=== PATIENT | male | born 1965 | race Caucasian/White ===

== ENCOUNTER → 2020-12-29 08:56 | Outpatient (BNVA) | payer BC, SELFPAY | PROVIDERS: Family Provider Family Medicine; Visit Provider Podiatrist Foot & Ankle Surgery | DX: M79.673 Pain in unspecified foot (principal) | CPT/HCPCS: 77077 ==

== ENCOUNTER 2020-12-29 10:49 | Outpatient (CLI) | payer BC, SELFPAY | END 2020-12-29 10:50 | disposition home or self-care (01) | LOC: SPT 10:50 | PROVIDERS: Family Provider Family Medicine; Visit Provider Podiatrist Foot & Ankle Surgery | DX: Z46.89 Encounter for fitting and adjustment of other specified devices (principal); L97.522 Non-pressure chronic ulcer of other part of left foot with fat layer exposed; E11.42 Type 2 diabetes mellitus with diabetic polyneuropathy | CPT/HCPCS: 97760; L4361 ==

== ENCOUNTER → 2021-07-04 10:15 | Outpatient (BNVA) | payer BC, SELFPAY | PROVIDERS: Family Provider Family Medicine; PCP Nurse Practitioner; Visit Provider Nurse Practitioner | DX: E11.65 Type 2 diabetes mellitus with hyperglycemia (principal); Z12.5 Encounter for screening for malignant neoplasm of prostate | CPT/HCPCS: 80053; 80061; 81000; 83036; 84443; 85025; G0103 ==

== ENCOUNTER → 2021-09-18 09:05 | Outpatient (BNVA) | payer BC, SELFPAY | PROVIDERS: Family Provider Family Medicine; PCP Nurse Practitioner; Visit Provider Nurse Practitioner | DX: E11.65 Type 2 diabetes mellitus with hyperglycemia (principal); I10 Essential (primary) hypertension; G47.00 Insomnia, unspecified; M79.2 Neuralgia and neuritis, unspecified | CPT/HCPCS: 80053; 80061; 81003; 83036; 85025 ==

== ENCOUNTER → 2022-01-17 09:28 | Outpatient (BNVA) | payer BC, SELFPAY | PROVIDERS: Family Provider Family Medicine; PCP Nurse Practitioner; Visit Provider Nurse Practitioner | DX: E11.65 Type 2 diabetes mellitus with hyperglycemia (principal); Z79.4 Long term (current) use of insulin; E78.2 Mixed hyperlipidemia; I10 Essential (primary) hypertension; M79.2 Neuralgia and neuritis, unspecified; G47.00 Insomnia, unspecified | CPT/HCPCS: 80053; 80061; 81000; 82043; 83036 ==

== ENCOUNTER → 2022-03-20 15:56 | Outpatient (BNVA) | payer BC, SELFPAY | PROVIDERS: Family Provider Family Medicine; PCP Nurse Practitioner; Visit Provider Nurse Practitioner Family | DX: E11.621 Type 2 diabetes mellitus with foot ulcer (principal); L97.522 Non-pressure chronic ulcer of other part of left foot with fat layer exposed; I96 Gangrene, not elsewhere classified; L97.512 Non-pressure chronic ulcer of other part of right foot with fat layer exposed | CPT/HCPCS: 87070; 87077; 87176; 87186; 87205 ==

== ENCOUNTER 2022-04-24 12:47 | Outpatient (CLI) | payer BC, SELFPAY ==
[2022-04-24 13:11] LABS: Basophils # 0.1 10^3/uL (0.0-0.1); Basophils % 1.7 %; Eosinophils # 0.1 10^3/uL (0.0-0.8); Eosinophils % 2.1 %; Hematocrit 42.6 % (42.0-52.0); Hemoglobin 14.1 g/dL (11.7-16.6); Lymphocytes # 1.7 10^3/uL (0.8-4.8); Lymphocytes % 33.1 %; Mean Corpuscular HGB Conc 33.1 g/dL (30.0-36.0); Mean Corpuscular Hemoglobin 28.7 pg (28.0-34.0); Mean Corpuscular Volume 86.8 fl (80-94); Monocytes # 0.4 10^3/uL (0.2-0.9); Monocytes % 6.9 %; Nucleated Red Blood Cells % 0 %; Platelet Count 322 10^3/cmm (130-400); Red Blood Count 4.91 10^6/uL (4.1-5.3); Red Cell Distribution Width 13.4 % (12.1-15.1); White Blood Count 5.2 10^3/uL (4.0-10.0)
[2022-04-24 13:32] LABS: Estmated Average Glucose 180; Hemoglobin A1C 7.9 % (4.0-6.0)
[2022-04-24 13:42] LABS: Alanine Aminotransferase 16 U/L (0-41); Albumin Level 4.4 g/dL (3.5-5.2); Alkaline Phosphatase 76 IU/L (40-130); Anion Gap 15.9 (5-19); Aspartate Amino Transferase 18 U/L (0-40); Blood Urea Nitrogen 21 mg/dL (6-20); Calcium 9.5 mg/dL (8.5-10.5); Carbon Dioxide 26 mmol/L (22-29); Chloride 98 mmol/L (98-107); Chol HDL Ratio 4.44 mg/dL (1.0-5.00); Cholesterol 151 mg/dL (0-200); Globulin 3.5 g/dL (1.3-4.6); Glomerular Filtration Rate 116.2 mL/min (90-130); Glucose 173 mg/dL (65-115); HDL Cholesterol 34 mg/dL (60-100); LDL Cholesterol Calculated 92 mg/dL (50-129); Osmolality Calculated 287 mOsm/kg (285-295); Potassium 4.9 mmol/L (3.5-5.1); Sodium 135 mmol/L (136-145); Total Bilirubin 0.2 mg/dL (0.15-1.2); Total Protein 7.9 g/dL (6.6-8.7); Triglycerides 123 mg/dL (0-150); VLDL Cholestrol Calculation 25 mg/dL (0-30)
== END 2022-04-24 12:48 | disposition home or self-care (01) ==
LOC: LAB 12:49
PROVIDERS: PCP Nurse Practitioner; Visit Provider Nurse Practitioner
DX: E11.65 Type 2 diabetes mellitus with hyperglycemia (principal); Z79.4 Long term (current) use of insulin
CPT/HCPCS: 36415; 80053; 80061; 81000; 83036; 85025

== ENCOUNTER 2022-04-27 10:27 | Outpatient (CLI) | payer BC, SELFPAY ==
--- NOTE | 2022-04-27 10:15 | MR_ITS ---
WS: [id number] MRI LEFT FOOT with and without CONTRAST. COMPARISON: Radiograph 12/29/2020 Multiplanar, multisequence imaging is performed with and without contrast. Sagittal and axial T1 fat sat sequences post-MultiHance 20 cc IV. Peripherally enhancing soft tissue tract begins over the lateral foot at the level of the mid fifth m etatarsal. This tract extends over a length of 1.6 cm x 1.8 x 0.6 cm. Tract extends superficially an d extends to abut the mid to distal fifth metatarsal. There is enhancement consistent with abscess al andreia the tract along with extensive soft tissue edema and enhancement from cellulitis. No additional a bscess collections. Extensive edema and cellulitis surrounding the fifth metatarsal and extend adjace nt to the fourth metatarsal. There is an additional soft tissue track with enhancement along the plantar surface of the foot at th e level of the proximal fifth metatarsal. This corresponds to the marker placed near the nonhealing u lcer. This tract is contiguous with the proximal fifth metatarsal at the site of the fracture. This f racture line does not enhance significantly. Decreased T1 signal throughout the large portion of the fifth metatarsal with enhancement. Consistent with osteomyelitis. There is an old healed fracture of the proximal fifth metatarsal. Degenerative joint space narrowing with osteophytes and subchondral cystic changes involving the prox imal metatarsals and their corresponding tarsal bones. There is deformity in the midfoot. No addition al abscess or osteomyelitis. MR/MR foot LT wo/w con [id number] IMPRESSION: 1. Osteomyelitis involving a large portion of the fifth metatarsal with mild s paring of the fifth metatarsal head. 2. Soft tissue tract with enhancement consistent with an abscess extending federico ng the lateral mid to distal fifth metatarsal. Abscess measures 1.8 x 0.6 cm an d extends over length of 1.6 cm to abut the fifth metatarsal. 3. Additional soft tissue tract with enhancement but no abscess along the plan tar surface of the foot at the proximal fifth metatarsal. This tract extends to the fifth metatarsal where there is a prior fracture. There may be granulation tissue at the fracture site with nonhealing. There is not a significant amount of enhancement at the fracture site. There is osteomyelitis on both sides of t his granulation tissue. 4. Diffuse cellulitis of the lateral foot. 5. Advanced osteoarthritic degenerative changes in the midfoot.
[2022-04-27] MEDS: gadobenate dimeglumine 20 mL vial IV (12:00)
== END 2022-04-27 10:28 | disposition home or self-care (01) ==
PROVIDERS: PCP Nurse Practitioner; Visit Provider Nurse Practitioner Family
DX: E11.621 Type 2 diabetes mellitus with foot ulcer (principal); L97.509 Non-pressure chronic ulcer of other part of unspecified foot with unspecified severity; M86.8X7 Other osteomyelitis, ankle and foot; L03.116 Cellulitis of left lower limb
CPT/HCPCS: 73720

== ENCOUNTER 2022-05-18 13:36 | Outpatient (CLI) | payer BC, SELFPAY ==
[2022-05-18 14:07] LABS: Basophils # 0.1 10^3/uL (0.0-0.1); Basophils % 1.1 %; Eosinophils # 0.1 10^3/uL (0.0-0.8); Hematocrit 41.7 % (42.0-52.0); Hemoglobin 13.5 g/dL (11.7-16.6); Lymphocytes # 1.3 10^3/uL (0.8-4.8); Lymphocytes % 24.5 %; Mean Corpuscular HGB Conc 32.4 g/dL (30.0-36.0); Mean Corpuscular Hemoglobin 29.3 pg (28.0-34.0); Mean Corpuscular Volume 90.5 fl (80-94); Mean Platelet Volume 10.5 fL (7.4-10.4); Monocytes # 0.3 10^3/uL (0.2-0.9); Neutrophils # 3.63 10^3/uL (1.8-7.7); Neutrophils % 66.2 %; Nucleated Red Blood Cells % 0 %; Platelet Count 246 10^3/cmm (130-400); Red Blood Count 4.61 10^6/uL (4.1-5.3); Red Cell Distribution Width 14.8 % (12.1-15.1); White Blood Count 5.5 10^3/uL (4.0-10.0)
[2022-05-18 14:30] LABS: Alanine Aminotransferase 19 U/L (0-41); Albumin Level 4.7 g/dL (3.5-5.2); Alkaline Phosphatase 68 IU/L (40-130); Aspartate Amino Transferase 18 U/L (0-40); Blood Urea Nitrogen 24 mg/dL (6-20); Calcium 9.5 mg/dL (8.5-10.5); Carbon Dioxide 25 mmol/L (22-29); Chloride 98 mmol/L (98-107); Globulin 2.8 g/dL (1.3-4.6); Glomerular Filtration Rate 99.6 mL/min (90-130); Glucose 197 mg/dL (65-115); Osmolality Calculated 294 mOsm/kg (285-295); Sodium 137 mmol/L (136-145); Total Bilirubin 0.2 mg/dL (0.15-1.2); Total Protein 7.5 g/dL (6.6-8.7)
[2022-05-18 14:32] LABS: Anion Gap 18.7 (5-19); Potassium 4.7 mmol/L (3.5-5.1)
== END 2022-05-18 13:37 | disposition home or self-care (01) ==
LOC: LAB 13:39
PROVIDERS: PCP Nurse Practitioner; Visit Provider Nurse Practitioner Family
DX: M86.171 Other acute osteomyelitis, right ankle and foot (principal)
CPT/HCPCS: 80053; 85025

== ENCOUNTER 2022-09-06 01:00 | Outpatient (RCR) | payer BC, SELFPAY | END 2022-09-06 23:00 | disposition home or self-care (01) | LOC: CR 01:00 | PROVIDERS: PCP Nurse Practitioner; Referring Provider Thoracic Surgery (Cardiothoracic Vascular Surgery); Visit Provider Thoracic Surgery (Cardiothoracic Vascular Surgery) | DX: Z95.1 Presence of aortocoronary bypass graft (principal) | CPT/HCPCS: 87070; 87176; 87205 ==

== ENCOUNTER 2022-11-02 16:20 | Outpatient (CLI) | payer BC, SELFPAY ==
[2022-11-02 17:16] LABS: Alanine Aminotransferase 27 U/L (0-41); Albumin Level 3.8 g/dL (3.5-5.2); Alkaline Phosphatase 99 U/L (40-130); Anion Gap 15.7 (5-19); Aspartate Amino Transferase 21 U/L (0-40); Blood Urea Nitrogen 20 mg/dL (6-20); Calcium 9.2 mg/dL (8.5-10.5); Carbon Dioxide 25 mmol/L (22-29); Chloride 99 mmol/L (98-107); Chol HDL Ratio 3.21 mg/dL (1.0-5.00); Cholesterol 106 mg/dL (0-200); Globulin 3.7 g/dL (1.3-4.6); Glomerular Filtration Rate 99.6 mL/min (90-130); Glucose 217 mg/dL (65-115); HDL Cholesterol 33 mg/dL (60-100); LDL Cholesterol Calculated 48 mg/dL (50-129); LDL HDL Ratio 1.45 RATIO (0.00-3.22); Osmolality Calculated 289 mOsm/kg (285-295); Potassium 4.7 mmol/L (3.5-5.1); Sodium 135 mmol/L (136-145); Total Bilirubin 0.2 mg/dL (0.15-1.2); Total Protein 7.5 g/dL (6.6-8.7); Triglycerides 126 mg/dL (0-150)
[2022-11-02 21:03] LABS: Estmated Average Glucose 197; Hemoglobin A1C 8.5 % (4.0-6.0)
== END 2022-11-02 16:21 | disposition home or self-care (01) ==
LOC: LAB 16:25
PROVIDERS: PCP Nurse Practitioner; Referring Provider Thoracic Surgery (Cardiothoracic Vascular Surgery); Visit Provider Internal Medicine
DX: E11.65 Type 2 diabetes mellitus with hyperglycemia (principal); Z79.4 Long term (current) use of insulin; E78.2 Mixed hyperlipidemia; R20.0 Anesthesia of skin; R20.2 Paresthesia of skin
CPT/HCPCS: 36415; 80053; 80061; 83036

== ENCOUNTER 2022-11-06 10:09 | Outpatient (CLI) | payer BC, SELFPAY ==
[2022-11-06] MEDS: gadobenate dimeglumine 20 mL vial IV (11:35)
--- NOTE | 2022-11-06 11:45 | MR_ITS ---
WS: [id number] EXAMINATION: MR foot LT wo/w con [id number] ORDER DATE: 11/06/2022 10:38 AM COMPARISON: MRI April 27, 2022 HISTORY: non-healing wound; osteomyelitis; bone exposure TECHNIQUE: Sagittal T1, sagittal STIR, coronal PD, coronal T2, axial T1, axial T2, and axial PD imagi ng with fat saturation technique. Post gadolinium imaging includes axial T1, coronal T1, and sagittal T1 with fat saturation technique. FINDINGS: Diffuse soft tissue edema with enhancement involving the lateral foot soft tissues. This ex tends into the dorsal and deep foot soft tissues involving the lateral midfoot. Findings compatible w ith cellulitis. Ulceration along the inferior lateral midfoot at the level of the 5th metatarsal. No drainable abscess or fluid collection in this area. Replacement of the normal fatty T1 bone marrow si gnal involving the 5th metatarsal. This involves the base of the 5th metatarsal extending into the me tatarsal shaft. Small amount of residual normal bone marrow signal in the 5th metatarsal head. Findin gs compatible with osteomyelitis. Associated T2 signal abnormality and enhancement. Chronic appearing deformity and bowing of the 5th metatarsal. Chronic appearing fracture involving pr oximal 5th metatarsal shaft. Chronic degenerative changes involving the tarsal bones. Advanced degenerative changes at the cuboid articulation with a small amount of edema in the cuboid likely reactive. Small amount of fluid at the 5th TMT joint. Pes planus. Tiny plantar calcaneal spur. MR/MR foot LT wo/w con [id number] IMPRESSION: Images somewhat limited due to motion artifact. 1. Evidence of osteomyelitis involving the majority of the 5th metatarsal exte nding from the base to the distal shaft. This appears progressed compared to 2021 with sparing of the metatarsal head. 2. Diffuse associated cellulitis and soft tissue edema involving the lateral a nd dorsal aspect of the foot. 3. Small ulceration overlying the 5th metatarsal laterally and inferiorly. No drainable abscess or fluid collection. 4. Chronic appearing bowing deformity involving the 5th metatarsal with ununit ed fracture at the proximal shaft. 5. Advanced degenerative changes/ankylosis at the cuboid articulation.
== END 2022-11-06 10:10 | disposition home or self-care (01) ==
LOC: RAD 10:11
PROVIDERS: PCP Nurse Practitioner; Visit Provider Thoracic Surgery (Cardiothoracic Vascular Surgery)
DX: E11.621 Type 2 diabetes mellitus with foot ulcer (principal); L97.509 Non-pressure chronic ulcer of other part of unspecified foot with unspecified severity; M86.9 Osteomyelitis, unspecified
CPT/HCPCS: 73720; 87070; 87077; 87176; 87186; 87205; A9577

== ENCOUNTER 2022-11-16 11:02 | Outpatient (CLI) | payer BC, SELFPAY ==
--- NOTE | 2022-11-16 11:50 | XRR_ITS ---
PROCEDURE INFORMATION: Exam: XR Chest Exam date and time: 11/16/2022 12:06 PM Age: 56 years old Clinical indication: Screening exam; Other screening; Prior surgery; Surgery type: Open heart; Additional info: Rule out bullous disease; Hyperbaric clearance TECHNIQUE: Imaging protocol: Radiologic exam of the chest. Views: 2 views. COMPARISON: CR XR KUB [id number] 04/04/2018 3:59 AM FINDINGS: Lungs: Unremarkable. No consolidation. Pleural spaces: Unremarkable. No pleural effusion. No pneumothorax. Heart/Mediastinum: Unremarkable. No cardiomegaly. Bones/joints: Patient has undergone prior median sternotomy otherwise osseous structures are unremarkable for age. XR/XR chest 2V* [id number] IMPRESSION: Negative chest. No active disease.
[2022-11-16 12:17] LABS: Basophils # 0.1 10^3/uL (0.0-0.1); Basophils % 1.5 %; Eosinophils # 0.2 10^3/uL (0.0-0.8); Eosinophils % 2.6 %; Hematocrit 37.6 % (42.0-52.0); Hemoglobin 11.8 g/dL (11.7-16.6); Lymphocytes # 1.6 10^3/uL (0.8-4.8); Lymphocytes % 21.6 %; Mean Corpuscular HGB Conc 31.4 g/dL (30.0-36.0); Mean Corpuscular Hemoglobin 27.3 pg (28.0-34.0); Mean Corpuscular Volume 86.8 fl (80-94); Mean Platelet Volume 10.4 fL (7.4-10.4); Monocytes # 0.4 10^3/uL (0.2-0.9); Monocytes % 5.7 %; Neutrophils % 68.3 %; Nucleated Red Blood Cells % 0 %; Platelet Count 311 10^3/cmm (130-400); Red Blood Count 4.33 10^6/uL (4.1-5.3); Red Cell Distribution Width 13.4 % (12.1-15.1); White Blood Count 7.3 10^3/uL (4.0-10.0)
[2022-11-16 12:22] LABS: Erythrocyte Sedimentation Rate 12 mm/hr (0-10)
[2022-11-16 12:39] LABS: C Reactive Protein 4.9 mg/L (0.0-4.9)
--- NOTE | 2022-11-16 16:10 | ECG_ITS ---
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 Measurements Intervals [place] Rate: 70 P: 67 NV: 194 QRS: -18 QRSD: 100 T: 114 QT: 395 QTc: 429 Interpretive Statements SINUS RHYTHM POSSIBLE ANTERIOR MYOCARDIAL INFARCTION , OF INDETERMINATE AGE [30 ms Q WAVE IN V3/V4, OR R < 0.2 mV IN V4] MODERATE T-WAVE ABNORMALITY, CONSIDER LATERAL ISCHEMIA [-0.1+ mV T-WAVE IN I/aVL/V5/V6] Compared to ECG 01/12/2015 16:55:53 T-wave abnormality now present Possible ischemia now present Sinus tachycardia no longer present Myocardial infarct finding still present Electronically Signed On 11-16-2022 16:23:20 PRESENTATION TEAM MEMBER by Willard Morelos M.D. [id number] f
== END 2022-11-16 11:03 | disposition home or self-care (01) ==
PROVIDERS: PCP Nurse Practitioner; Visit Provider Thoracic Surgery (Cardiothoracic Vascular Surgery)
DX: Z13.83 Encounter for screening for respiratory disorder NEC (principal); M86.672 Other chronic osteomyelitis, left ankle and foot; I21.9 Acute myocardial infarction, unspecified
CPT/HCPCS: 71046; 85025; 85651; 86140; 93005

== ENCOUNTER 2023-03-20 10:14 | Outpatient (CLI) | payer BC, SELFPAY ==
[2023-03-20 11:13] LABS: Alanine Aminotransferase 32 U/L (0-41); Albumin Level 3.9 g/dL (3.5-5.2); Alkaline Phosphatase 117 U/L (40-130); Anion Gap 16.8 (5-19); Aspartate Amino Transferase 21 U/L (0-40); Blood Urea Nitrogen 25 mg/dL (6-20); Calcium 9.1 mg/dL (8.5-10.5); Carbon Dioxide 23 mmol/L (22-29); Chloride 99 mmol/L (98-107); Chol HDL Ratio 2.81 mg/dL (1.0-5.00); Cholesterol 87 mg/dL (0-200); Globulin 3.5 g/dL (1.3-4.6); Glomerular Filtration Rate 138.4 mL/min (90-130); Glucose 198 mg/dL (65-115); HDL Cholesterol 31 mg/dL (60-100); LDL Cholesterol Calculated 41 mg/dL (50-129); LDL HDL Ratio 1.32 RATIO (0.00-3.22); Osmolality Calculated 288 mOsm/kg (285-295); Potassium 4.8 mmol/L (3.5-5.1); Sodium 134 mmol/L (136-145); Total Bilirubin 0.3 mg/dL (0.15-1.2); Total Protein 7.4 g/dL (6.6-8.7); Triglycerides 74 mg/dL (0-150)
[2023-03-20 12:26] LABS: Estmated Average Glucose 203; Hemoglobin A1C 8.7 % (4.0-6.0)
== END 2023-03-20 10:15 | disposition home or self-care (01) ==
PROVIDERS: PCP Nurse Practitioner; Visit Provider Internal Medicine
DX: E11.65 Type 2 diabetes mellitus with hyperglycemia (principal); Z79.4 Long term (current) use of insulin
CPT/HCPCS: 36415; 80053; 80061; 83036

== ENCOUNTER 2023-08-13 15:04 | Emergency (ER) | payer BC, SELFPAY ==
[2023-08-13 15:08] VITALS: BP 145/79; PULSE 102; RESP 16; TEMP 37.2; O2SAT 97; BMI 27.0
--- NOTE | 2023-08-13 15:21 | XR_ITS ---
WS: [id number] Right foot, 3 views 08/13/2023 Clinical Data: diabetic foot ulcers Comparison: Bilateral feet, 12/29/2020 Findings: No fractures or dislocations are seen. There is soft tissue swelling with a superficial ulcer at the lateral aspect of the distal right fifth metatarsal. No bone destruction or erosion is seen. There ar e flexion deformities of the right first through fifth toes. Impression: Soft tissue ulceration adjacent to the lateral distal right fifth metatarsal.
--- NOTE | 2023-08-13 15:21 | XR_ITS ---
WS: [id number] Left foot, 3 views, 08/13/2023 Clinical Data: diabetic foot ulcers Comparison: Bilateral feet, 12/29/2020 Findings: The old fracture of the proximal left fifth metatarsal remains the same. There is osteoarthritis of the bases of the left first, second and third metatarsals as they articula te with the cuneiforms. There is osteoarthritis of the IP joints of the toes. The soft tissues are no rmal. Impression: 1. 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 2. Old fracture left fifth metatarsal.
--- NOTE | 2023-08-13 15:56 | ED_ITS ---
HPI - Wound/Laceration General: Chief Complaint: Wound/Laceration Stated Complaint: spot on rt leg Time Seen by Provider: 08/13/23 15:11 Source: patient Mode of arrival: ambulatory History of Present Illness: 57-year-old male presents emergency room he has a open wound on his right foot that is not been draining he has proximal red streaking he is concerned about cellulitis no fever sweats or chills. Does have a history of diabetes mellitus Onset (ago): day(s) Extremity Location: Right: lower leg Associated symptoms: Denies chills, fever(s), foreign body sensation, inability to move, nausea, numbness, pain, syncope or vomiting Review of Systems Const: Denies: fever(s) or chills Card: Denies: chest pain, palpitations or syncope Resp: Denies: dyspnea GI: Denies: nausea or vomiting : Denies: dysuria, urinary frequency or urinary urgency Musc: Denies: neck pain or back pain Skin/Breast: Reports: rash, new lesions, changing lesions and non-healing lesions PFSH ED PFSH: Medical History Diabetes mellitus with hyperglycemia, with long-term current use of insulin Hyperlipidemia, mixed Hypertension Insomnia Neuropathic pain Osteomyelitis of foot, right, acute Surgical History History of heart bypass surgery July 2022 History of knee surgery both Family History Other Cancer Dementia Diabetes Lung disease Neuropathic pain Denies family history of Chronic kidney disease (CKD) Hypertension Stroke Social History Smoking and tobacco/nicotine status: never used tobacco/nicotine Second hand smoke exposure: No Alcohol intake: current Alcohol intake frequency: holidays/special occasions only Substance/Drug Use: never Adopted: No Caregiver/support person: No Lives independently: Yes Household members: spouse Housing: House Number of children: 2 service: No Current occupational status: employed Current occupation: [employer] Current occupational exposures/hazards: No Pets and animals: Yes Do you think of yourself as: Straight/Heterosexual Current gender identity: Male Physical Exam Const: COMMON NORMALS: no acute distress GENERAL APPEARANCE: cooperative and comfortable ORIENTATION/CONSCIOUSNESS: Yes awake, Yes oriented to person, Yes oriented to place and Yes oriented to time HENMT: COMMON NORMALS: normocephalic, atraumatic and hearing grossly normal bilaterally HEAD & SCALP: normocephalic and atraumatic Resp: COMMON NORMALS: normal respiratory effort, No retractions, No use of accessory muscles and clear to auscultation bilaterally AUSCULTATION: clear to auscultation bilaterally Cardio: COMMON NORMALS: regular rate, regular rhythm and No murmurs present (Cardio) RATE: regular rate RHYTHM: regular rhythm GI: COMMON NORMALS: Soft to palpation and No hepatosplenomegaly present AUSCULTATION: Yes normoactive bowel sounds PALPATION: Yes Soft to palpation, No Tenderness to palpation present (GI), No Guarding due to palpation present (GI) and Yes No hepatosplenomegaly present Extremity: COMMON NORMALS: normal to inspection, capillary refill normal, no clubbing, cyanosis or edema, no calf tenderness and no pedal edema OTHER: Full-thickness ulcer on the right fifth toe no drainage Neuro: SENSORIUM/ORIENTATION: Yes oriented to person, Yes oriented to place and Yes oriented to time Skin: COMMON NORMALS: no rashes or lesions noted GENERAL SKIN EXAM: no rashes or lesions noted Course Vital Signs: Vital signs: Vital Signs Temperature 99.0 F 08/13/23 15:08 Pulse Rate 102 H 08/13/23 15:08 Respiratory Rate 16 08/13/23 15:08 Blood Pressure 145/79 08/13/23 15:08 Pulse Oximetry 97 08/13/23 15:08 MDM - Wound/Laceration Medical Decision Making Diabetic foot ulcer started on Bactrim and referred to wound care clinic Medical Records I reviewed the patient's medical records. Lab Data I reviewed the patient's lab results. 08/13/23 15:47 08/13/23 15:47 Laboratory Results WBC 11.46 10^3/uL (3.29-11.43) H 08/13/23 15:47 RBC 4.70 10^6/uL (3.85-5.65) 08/13/23 15:47 Hgb 14.00 g/dL (11.27-16.99) 08/13/23 15:47 Hct 42.2 % (37-53) 08/13/23 15:47 MCV 89.8 fl (82-101) 08/13/23 15:47 MCH 29.8 pg (27-33) 08/13/23 15:47 MCHC 33.2 g/dL (30-55) 08/13/23 15:47 RDW 12.9 % (12.1-15.1) 08/13/23 15:47 Plt Count 219 10^3/cmm (157-399) 08/13/23 15:47 MPV 10.6 fL (7.4-10.4) H 08/13/23 15:47 Neut % (Auto) 84.5 % 08/13/23 15:47 Lymph % (Auto) 8.6 % 08/13/23 15:47 [place] % (Auto) 6.0 % 08/13/23 15:47 Eos % (Auto) 0.1 % 08/13/23 15:47 Baso % (Auto) 0.5 % 08/13/23 15:47 Neut # (Auto) 9.68 10^3/uL (1.8-7.7) H 08/13/23 15:47 Lymph # (Auto) 1.0 10^3/uL (0.8-4.8) 08/13/23 15:47 [place] # (Auto) 0.7 10^3/uL (0.2-0.9) 08/13/23 15:47 Eos # (Auto) 0.0 10^3/uL (0.0-0.8) 08/13/23 15:47 Baso # (Auto) 0.1 10^3/uL (0.0-0.1) 08/13/23 15:47 Nucleated RBC % (auto) 0 % 08/13/23 15:47 Nucleated RBCs # 0.0 /100WBC 08/13/23 15:47 Sodium 134 mmol/L (136-145) L 08/13/23 15:47 Potassium 4.7 mmol/L (3.5-5.1) 08/13/23 15:47 Chloride 97 mmol/L (98-107) L 08/13/23 15:47 Carbon Dioxide 22 mmol/L (22-29) 08/13/23 15:47 Anion Gap 19.7 (5-19) H 08/13/23 15:47 BUN 18 mg/dL (6-20) 08/13/23 15:47 Creatinine 0.8 mg/dL (0.7-1.2) 08/13/23 15:47 GFR Calculation 99.3 mL/min (90-130) 08/13/23 15:47 Glucose 217 mg/dL (65-115) H 08/13/23 15:47 Calculated Osmolality 286 mOsm/kg (285-295) 08/13/23 15:47 Calcium 9.0 mg/dL (8.5-10.5) 08/13/23 15:47 Total Bilirubin 1.2 mg/dL (0.15-1.2) 08/13/23 15:47 AST 13 U/L (0-40) 08/13/23 15:47 ALT 19 U/L (0-41) 08/13/23 15:47 Alkaline Phosphatase 76 U/L (40-130) 08/13/23 15:47 Total Protein 7.6 g/dL (6.6-8.7) 08/13/23 15:47 Albumin 3.8 g/dL (3.5-5.2) 08/13/23 15:47 Globulin 3.8 g/dL (1.3-4.6) 08/13/23 15:47 All radiology interpretation(s) finalized by discharge Discharge Plan Discharge Patient Disposition: Home Clinical Impression: Diabetic foot ulcers Condition: Stable Prescriptions: New Bactrim DS 800-160 mg tablet 1 tab PO BID 14 Days Qty: 28 0RF No Action aspirin [Adult Low Dose Aspirin] 81 mg tablet,delayed release (DR/EC) 81 mg PO DAILY (DME) blood pressure test kit-large Kit See Rx Instructions .Route Qty: 1 0RF Rx Instructions: As directed (DME) pen needle, diabetic 33 gauge x 5/32 needle See Rx Instructions .ROUTE .MEDSUPPLY Qty: 100 0RF Rx Instructions: 1 daily olopatadine [Pataday Twice Daily Relief] 0.1 % drops 1 drp ophthalmic (eye) BID Qty: 5 0RF Rx Instructions: separate doses by at least 6-8 hours Jardiance 25 mg tablet 25 mg PO QAM Qty: 90 0RF Rx Instructions: Started by cardiology in [place], [place] magnesium oxide [MagOx] 400 mg (241.3 mg magnesium) tablet 400 mg PO DAILY Qty: 1 0RF Rx Instructions: Cardiology EDU CANELA metoprolol tartrate 50 mg tablet 50 mg PO .three times day Qty: 1 0RF Rx Instructions: Cardiology EDU CANELA glipizide 5 mg tablet 5 mg PO DAILY PRN (Reason: diabetes) Qty: 90 0RF tramadol 50 mg tablet 50 mg PO Q6H PRN (Reason: pain) Qty: 60 5RF (DME) Cam walker See Rx Instructions .Route .MEDSUPPLY Qty: 1 0RF Rx Instructions: As directed by HOME zolpidem [Ambien CR] 12.5 mg tablet,ext release multiphase 12.5 mg PO .at bedtime Qty: 30 5RF (DME) FreeStyle Sara 3 Sensor Kit See Rx Instructions .Route Qty: 2 5RF Rx Instructions: every 14 days metformin 500 mg tablet extended release 24 hr See Rx Instructions .ROUTE .COMPLEX Qty: 352 0RF Dose Instruction: TAKE 2 TABLETS BY MOUTH TWICE DAILY Rx Instructions: TAKE 2 TABLETS BY MOUTH TWICE DAILY rosuvastatin 40 mg tablet See Rx Instructions .ROUTE .COMPLEX Qty: 90 3RF Dose Instruction: TAKE ONE TABLET BY MOUTH EVERY DAY Rx Instructions: TAKE ONE TABLET BY MOUTH EVERY DAY Ozempic 2 mg/dose (8 mg/3 mL) pen injector See Rx Instructions .ROUTE .COMPLEX Qty: 6 0RF Dose Instruction: INJECT 2MG (0.75ML) INTO SKIN EVERY 7 DAYS FOR 60 DAYS Rx Instructions: INJECT 2MG (0.75ML) INTO SKIN EVERY 7 DAYS FOR 60 DAYS Discharge Orders: Discharge ED (Routine); Ordered 08/13/23 Ordered By: Jair Bhandari Referrals: Jodi Mederos, [facility] [Primary Care Provider] - Discharge Diet: Usual diet Discharge Activity: Increase activity as tolerated Patient Instructions: Foot Care for People with Diabetes (ED), Diabetic Foot Ulcers (ED), Opioid Safety, Pain Management Activity Restrictions/Additional Instructions: Thank you for choosing [facility] for your healthcare needs today. Please realize this is an emergency room and that we are providing you with a medical screening exam and this may not be complete and all inclusive of all the testing and or work up that you may need to determine your ailment or severity of your illness. It is very important that you follow up as instructed or that you return to the Emergency Department should you have concerns or if your condition changes or worsens in any way. Case management will make arrangements for you to follow-up with wound care clinic. If you develop fever return to the emergency room Coding Level of Care Code ED Regulatory Technician for Michael Moreira
[2023-08-13 15:59] LABS: Basophils # 0.1 10^3/uL (0.0-0.1); Basophils % 0.5 %; Eosinophils % 0.1 %; Hematocrit 42.2 % (37-53); Lymphocytes % 8.6 %; Mean Corpuscular HGB Conc 33.2 g/dL (30-55); Mean Corpuscular Hemoglobin 29.8 pg (27-33); Mean Corpuscular Volume 89.8 fl (82-101); Mean Platelet Volume 10.6 fL (7.4-10.4); Monocytes # 0.7 10^3/uL (0.2-0.9); Neutrophils # 9.68 10^3/uL (1.8-7.7); Neutrophils % 84.5 %; Nucleated Red Blood Cells % 0 %; Platelet Count 219 10^3/cmm (157-399); Red Cell Distribution Width 12.9 % (12.1-15.1); White Blood Count 11.46 10^3/uL (3.29-11.43)
[2023-08-13 16:18] LABS: Alanine Aminotransferase 19 U/L (0-41); Albumin Level 3.8 g/dL (3.5-5.2); Alkaline Phosphatase 76 U/L (40-130); Anion Gap 19.7 (5-19); Aspartate Amino Transferase 13 U/L (0-40); Blood Urea Nitrogen 18 mg/dL (6-20); Carbon Dioxide 22 mmol/L (22-29); Chloride 97 mmol/L (98-107); Globulin 3.8 g/dL (1.3-4.6); Glomerular Filtration Rate 99.3 mL/min (90-130); Glucose 217 mg/dL (65-115); Osmolality Calculated 286 mOsm/kg (285-295); Potassium 4.7 mmol/L (3.5-5.1); Sodium 134 mmol/L (136-145); Total Bilirubin 1.2 mg/dL (0.15-1.2); Total Protein 7.6 g/dL (6.6-8.7)
--- NOTE | 2023-08-13 17:23 | DCPLANNER ---
Message sent to wound care clinic for diabetic foot ulcers.
== END 2023-08-13 17:24 | disposition home or self-care (01) ==
PROVIDERS: Emergency Provider Family Medicine; PCP Nurse Practitioner
DX: E11.621 Type 2 diabetes mellitus with foot ulcer (principal); L97.519 Non-pressure chronic ulcer of other part of right foot with unspecified severity; Z79.82 Long term (current) use of aspirin; Z79.84 Long term (current) use of oral hypoglycemic drugs; E78.2 Mixed hyperlipidemia; I10 Essential (primary) hypertension
CPT/HCPCS: 36415; 73630; 80053; 85025; 87040; 99284

== ENCOUNTER → 2023-09-25 09:52 | Outpatient (BNVA) | payer BC, SELFPAY | PROVIDERS: PCP Nurse Practitioner; Visit Provider Internal Medicine | DX: E11.65 Type 2 diabetes mellitus with hyperglycemia (principal); Z79.4 Long term (current) use of insulin; M79.2 Neuralgia and neuritis, unspecified; E78.2 Mixed hyperlipidemia; M86.171 Other acute osteomyelitis, right ankle and foot | CPT/HCPCS: 36415; 80053; 80061; 82044; 83036 ==

== ENCOUNTER 2023-12-25 17:58 | Inpatient (IN) | payer BC, SELFPAY ==
[2023-12-25] VITALS (63 sets, daily range): BP systolic 98–152; BP diastolic 66–93; PULSE 84–168; RESP 14–46; TEMP 36.4; O2SAT 94–100; BMI 27.0; BMI 26.4
--- NOTE | 2023-12-25 18:03 | ECG_ITS ---
[facility] Test Date: 2023-12-25 Pat Name: Akbar Edmond Department: Room: Gender: Male Drip Pumper: : 1965 Requested By: Ashok Verdin Order Number: [id number] Galloway MD: Madhav Dawn M.D. Measurements Intervals [place] Rate: 162 P: 0 AR: 0 QRS: -31 QRSD: 105 T: 151 QT: 282 QTc: 464 Interpretive Statements ATRIAL FIBRILLATION WITH RAPID VENTRICULAR RESPONSE LEFT AXIS DEVIATION [QRS AXIS < -30] POSSIBLE ANTERIOR MYOCARDIAL INFARCTION , PROBABLY OLD [30 ms Q WAVE IN V3/V4, OR R < 0.2 mV IN V4] MODERATE T-WAVE ABNORMALITY, CONSIDER LATERAL ISCHEMIA [-0.1+ mV T-WAVE IN I/aVL/V5/V6] Compared to ECG 11/16/2022 16:03:24 Myocardial infarct finding still present T-wave abnormality still present Possible ischemia still present Electronically Signed On 12-26-2023 7:49:00 CDT by Madhav Dawn M.D. [id number]
[2023-12-25 18:13] LABS: Glucose Point of Care 404 mg/dL (70-110)
--- NOTE | 2023-12-25 18:33 | PC.NURSE ---
Medication Delay: Cardizem drip delayed d/t not being verified by pharmacy at this time.
[2023-12-25] MEDS: dilTIAZem 5 mg/mL SDV 5 mL 20 MG IVP ×2 (18:38→20:11)
[2023-12-25] MEDS: dilTIAZem 100 MG in sodium chloride 0.9% (add-van) 100 ML IV (18:43)
[2023-12-25] MEDS: ondansetron 2 mg/ML SDV 2 mL 4 MG IVP ×2 (18:48→20:08)
--- NOTE | 2023-12-25 18:53 | XRR_ITS ---
PROCEDURE INFORMATION: Exam: XR Chest Exam date and time: 12/25/2023 7:44 PM Age: 58 years old Clinical indication: Chest wall pain; Patient HX: Afib; Additional info: Cxp TECHNIQUE: Imaging protocol: Radiologic exam of the chest. Views: 1 view. COMPARISON: CR XR chest 2V* [id number] 11/16/2022 12:06 PM FINDINGS: Lungs: No focal consolidation. Pleural spaces: No evidence of pneumothorax. No evidence of pleural effusion. Heart/Mediastinum: Postsurgical changes of the mediastinum compatible with prior CABG. Cardiomediastinal silhouette is otherwise within normal limits. Bones/joints: No evidence of acute osseous abnormality. XR/XR chest 1V portable [id number] IMPRESSION: 1. No acute cardiopulmonary abnormality.
--- NOTE | 2023-12-25 18:53 | PC.NURSE ---
received report from Tatyana SAVAGE at this time
[2023-12-25 19:07] LABS: Basophils % 0.3 %; Hematocrit 52.4 % (37-53); Lymphocytes % 7.2 %; Mean Corpuscular HGB Conc 32.1 g/dL (30-55); Mean Corpuscular Hemoglobin 29.2 pg (27-33); Mean Corpuscular Volume 91.1 fl (82-101); Mean Platelet Volume 11.8 fL (7.4-10.4); Monocytes # 0.6 10^3/uL (0.2-0.9); Neutrophils # 12.73 10^3/uL (1.8-7.7); Neutrophils % 87.9 %; Nucleated Red Blood Cells % 0 %; Platelet Count 312 10^3/cmm (157-399); Red Blood Count 5.75 10^6/uL (3.85-5.65); Red Cell Distribution Width 12.7 % (12.1-15.1); White Blood Count 14.48 10^3/uL (3.29-11.43)
[2023-12-25 19:10] LABS: Ketone (Acetest) Serum Positive (Negative)
[2023-12-25 19:12] LABS: INR 1.06 (0.8-1.2)
[2023-12-25] MEDS: sodium chloride 0.9% 1,000 ML 999 ML IV ×2 (19:23→20:06)
[2023-12-25] MEDS: insulin regular-human 100 units/1 mL 14 UNIT IVP (19:23)
[2023-12-25 19:29] LABS: Alanine Aminotransferase 20 U/L (0-41); Albumin Level 4.7 g/dL (3.5-5.2); Alkaline Phosphatase 91 U/L (40-130); Anion Gap 42.7 (5-19); Aspartate Amino Transferase 13 U/L (0-40); Blood Urea Nitrogen 40 mg/dL (6-20); Calcium 9.7 mg/dL (8.5-10.5); Carbon Dioxide 11 mmol/L (22-29); Chloride 89 mmol/L (98-107); Glomerular Filtration Rate 38.8 mL/min (90-130); Glucose 436 mg/dL (65-115); Lipase 52 U/L (13-60); NT Pro B Type Natriuretic Pept 4529 pg/mL (0-125); Osmolality Calculated 315 mOsm/kg (285-295); Potassium 4.7 mmol/L (3.5-5.1); Sodium 138 mmol/L (136-145); Total Bilirubin 0.4 mg/dL (0.15-1.2); Total Protein 8.7 g/dL (6.6-8.7)
[2023-12-25 19:42] LABS: Troponin(5th) Baseline 38 ng/L (0-15)
[2023-12-25 19:55] LABS: Lactic Sepsis W/Reflex 5.6 mmol/L (0.5-2.2)
--- NOTE | 2023-12-25 19:59 | W.ED.ARRPALP ---
HPI - Arrhythmia/Palpitations General: Chief Complaint: Arrhythmia/Palpitations Stated Complaint: Weakness Time Seen by Provider: 12/25/23 18:42 History of Present Illness: 58-year-old male presents emergency department via EMS personnel secondary to feeling like he is having increased weakness and fatigue over the last 24 hours. He is a diabetic and has had a four-vessel coronary artery bypass graft approximately 1 year ago patient states he has had recurrent nausea and vomiting for the previous 3 days and also complained of epigastric pain that is a burning type pain and worse after having episodes of nausea and vomiting. He rates his pain an 8 out of 10 at present. He denies shortness of breath. He states he has been unable to keep his medicines down. Patient called EMS personnel today and they report SVT and they did provide him with adenosine 6 mg and repeat dose of 12 mg with no rhythm change. Patient presents here with heart rate in the 160s. Blood pressure is stable he does appear acutely ill he is pale and weak. Associated symptoms: Reports nausea and vomiting Review of Systems General: Reports: 10 or more systems reviewed and unremarkable except in HPI and below Const: Reports: fatigue and malaise Card: Reports: palpitations and irregular heart rhythm; Denies: chest pain GI: Reports: nausea, vomiting and heartburn [facility] ED PFSH: Medical History Osteomyelitis of foot, right, acute Diabetes mellitus with hyperglycemia, with long-term current use of insulin Hyperlipidemia, mixed Neuropathic pain Insomnia Hypertension Surgical History History of heart bypass surgery July 2022 History of knee surgery both Family History Other Cancer Dementia Diabetes Lung disease Neuropathic pain Denies family history of Chronic kidney disease (CKD) Hypertension Stroke Social History Smoking and tobacco/nicotine status: never used tobacco/nicotine Second hand smoke exposure: No Alcohol intake: current Alcohol intake frequency: holidays/special occasions only Substance/Drug Use: never Adopted: No Caregiver/support person: No Lives independently: Yes Household members: spouse Housing: House Number of children: 2 service: No Current occupational status: employed 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 Vital signs reviewed as documented. HENMT: Normocephalic, atraumatic. External ears normal appearance without drainage. Nose without drainage, normal appearance. Mucus membranes moist. Neck is supple, No jugular venous distension, trachea is midline, no appreciable carotid bruits. No lymphadenopathy. No meningeal signs. Flexion, extension and lateral rotation is without pain. Eyes: Pupils are equal, round, reactive to light and accommodation. No scleral icterus. Extra-ocular movement are intact. Thorax is symmetrical and with equal rise and fall with respirations. Resp: Lungs are clear to auscultation. No wheezes, rales, crackles or ronchi at present. Cardio: Atrial fibrillation with rapid ventricular response, positive S1, S2. No appreciable murmurs, rubs or gallops. GI: Abdominal exam reveals normal bowel sounds to all quadrants. No organomegaly. No obvious palpable masses noted. No hepatomegally appreciated. Soft, non-tender to palpation. Extremity: Extremities are non-edematous and both femoral and pedal pulses are 2+ and equal bilaterally. Moves all extremities well, sensation in all extremities. Neuro: Alert and oriented x4, person, place, time and situation. Cranial nerves II through XII are grossly intact, there is no focal neurological deficits that I can appreciate at present. Psych: Cooperative, calm, normal thought process, appropriate judgment. Skin: No lesions, rashes. No gross abnormalities noted. Course Vital Signs: Vital signs: Vital Signs Temperature 97.6 F 12/25/23 18:00 Pulse Rate 146 H 12/25/23 20:30 Respiratory Rate 17 12/25/23 20:30 Blood Pressure 122/78 12/25/23 20:30 Pulse Oximetry 96 12/25/23 20:30 Oxygen Delivery Me thod Room Air 12/25/23 18:21 MDM - Arrhythmia/Palpitations Medical Decision Making Physical exam completed and documented I did obtain a CBC which demonstrated elevated WBCs, his lactic acid was also elevated and he was positive for serum ketones, anion gap of 42.7. And elevated blood glucose levels over 400. Consistent with diabetic ketoacidosis. I have provided him IV insulin as well as a insulin drip. Patient did receive fluid bolus of normal saline x 2 as well as a Cardizem bolus of 20 mg x 2 and a Cardizem drip with improvement of his heart rate to the 110-120 rate. He was also provided metoprolol IV and p.o. With significant improvement in control of his heart rate into the mid 80s. Patient was provided a GI cocktail as well as Zofran for his nausea. He does have significant volume contraction and dehydration as his creatinine is elevated to 1.8 his baseline appears to be his 0.7. I have contacted the hospitalist physician to request admission to the intensive care unit for additional evaluation treatment and care. Medical Records I reviewed the patient's medical records. Lab Data I reviewed the patient's lab results. 12/25/23 18:00 12/25/23 18:00 Radiology Impressions Chest X-Ray 12/25/23 18:53 IMPRESSION: 1. No acute cardiopulmonary abnormality. Laboratory Results WBC 14.48 10^3/uL (3.29-11.43) H 12/25/23 18:00 RBC 5.75 10^6/uL (3.85-5.65) H 12/25/23 18:00 Hgb 16.80 g/dL (11.27-16.99) 12/25/23 18:00 Hct 52.4 % (37-53) 12/25/23 18:00 MCV 91.1 fl (82-101) 12/25/23 18:00 MCH 29.2 pg (27-33) 12/25/23 18:00 MCHC 32.1 g/dL (30-55) 12/25/23 18:00 RDW 12.7 % (12.1-15.1) 12/25/23 18:00 Plt Count 312 10^3/cmm (157-399) 12/25/23 18:00 MPV 11.8 fL (7.4-10.4) H 12/25/23 18:00 Neut % (Auto) 87.9 % 12/25/23 18:00 Lymph % (Auto) 7.2 % 12/25/23 18:00 Duchesne % (Auto) 4.0 % 12/25/23 18:00 Eos % (Auto) 0.0 % 12/25/23 18:00 Baso % (Auto) 0.3 % 12/25/23 18:00 Neut # (Auto) 12.73 10^3/uL (1.8-7.7) H 12/25/23 18:00 Lymph # (Auto) 1.0 10^3/uL (0.8-4.8) 12/25/23 18:00 Duchesne # (Auto) 0.6 10^3/uL (0.2-0.9) 12/25/23 18:00 Eos # (Auto) 0.0 10^3/uL (0.0-0.8) 12/25/23 18:00 Baso # (Auto) 0.0 10^3/uL (0.0-0.1) 12/25/23 18:00 Nucleated RBC % (auto) 0 % 12/25/23 18:00 Nucleated RBCs # 0.0 /100WBC 12/25/23 18:00 PT 14.20 SECONDS (12.1-14.9) 12/25/23 18:00 INR 1.06 (0.8-1.2) 12/25/23 18:00 Sodium 138 mmol/L (136-145) 12/25/23 18:00 Potassium 4.7 mmol/L (3.5-5.1) 12/25/23 18:00 Chloride 89 mmol/L (98-107) L 12/25/23 18:00 Carbon Dioxide 11 mmol/L (22-29) L 12/25/23 18:00 Anion Gap 42.7 (5-19) H 12/25/23 18:00 BUN 40 mg/dL (6-20) H 12/25/23 18:00 Creatinine 1.8 mg/dL (0.7-1.2) H 12/25/23 18:00 GFR Calculation 38.8 mL/min (90-130) L 12/25/23 18:00 Glucose 436 mg/dL (65-115) H 12/25/23 18:00 POC Glucose 391 mg/dL (70-110) H 12/25/23 20:14 Calculated Osmolality 315 mOsm/kg (285-295) H 12/25/23 18:00 Lactic Acid 5.6 mmol/L (0.5-2.2) H* 12/25/23 19:09 Calcium 9.7 mg/dL (8.5-10.5) 12/25/23 18:00 Total Bilirubin 0.4 mg/dL (0.15-1.2) 12/25/23 18:00 AST 13 U/L (0-40) 12/25/23 18:00 ALT 20 U/L (0-41) 12/25/23 18:00 Alkaline Phosphatase 91 U/L (40-130) 12/25/23 18:00 Troponin T Baseline 38 ng/L (0-15) H 12/25/23 18:58 NT-Pro-B Natriuret Pep 4529 pg/mL (0-125) H 12/25/23 18:00 Total Protein 8.7 g/dL (6.6-8.7) 12/25/23 18:00 Albumin 4.7 g/dL (3.5-5.2) 12/25/23 18:00 Globulin 4.0 g/dL (1.3-4.6) 12/25/23 18:00 Lipase 52 U/L (13-60) 12/25/23 18:00 Serum Ketones Positive (Negative) H 12/25/23 18:00 All radiology interpretation(s) finalized by discharge Critical Care Time Critical Care Time: Critical Care Time: Yes Total Critical Care Time: 50 Attestation: The patients was emergently evaluated as this patient's presentation and case had a high probability of a clinically significant, sudden, or life threatening deterioration of this patient's initial critical presentation or condition which required my full and direct attention, intervention and personal management. Discharge Plan Discharge Patient Disposition: Admitted As Inpatient Admit Provider: Aimee Sanchez Clinical Impression: Atrial fibrillation with rapid ventricular response, Diabetic keto-acidosis, Acute kidney injury Condition: Stable Coding Level of Care Code ED [employer] Supervisor for Michael Moreira
[2023-12-25] MEDS: lidocaine 2% viscous 15 ML, aluminum-mag hydrox-simethicon 30 ML, sucralfate oral liq 1 GM PO (20:08)
[2023-12-25 20:24] LABS: Glucose Point of Care 391 mg/dL (70-110)
[2023-12-25] MEDS: INSULIN REGULAR IN 0.9 % NACL 100 UNIT/100 ML BAG IV (20:25)
[2023-12-25] MEDS: metoprolol tartrate 1 mg/1 mL SDV 5 mL 5 MG IVP (21:01)
[2023-12-25 21:07] LABS: Reflex Lactate Order REFLEX LACTIC ORDERD
[2023-12-25 21:23] LABS: Troponin 5 2HR 31.61 ng/L (0-15); Troponin 5 2HR Delta -6.39 ABS# (0-10)
--- NOTE | 2023-12-25 21:23 | P.HP_ITS ---
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 Patient is stating that his symptoms started yesterday with chief complaint of nausea and vomiting, she noticed palpitation and heart rate was around 140s which she detected on his Apple Watch, blood sugar was running high as well around 400s, he was not able to take any of his medications because of persistent vomiting, he stating that he was vomiting almost every hour. No complaint of fever, diarrhea or chest pain In the ER he has been diagnosed with A-fib RVR put on Cardizem drip, DKA started on insulin drip I am requesting BMP to check his potassium level he has been getting insulin without potassium supplementation His A1c is around 8.9 most likely need insulin Review of Systems 2 Eyes: Denies: change in vision ENMT: Denies: throat pain Card: Denies: chest pain Resp: Denies: dyspnea GI: Reports: abdominal pain, nausea and vomiting : Denies: flank pain Musc: Denies: neck pain Skin/Breast: Denies: rash Neuro: Denies: headache(s) Psych: Denies: anxiety Medications/Allergies Home Medications Medication Instructions Recorded Confirmed Last Taken Type aspirin 81 mg tablet,delayed 81 mg PO DAILY 07/04/21 11/25/23 Unknown History release (Adult Low Dose Aspirin) olopatadine 0.1 % eye drops 1 drp ophthalmic (eye) BID #5 mL 07/07/21 11/25/23 Unknown Rx (Pataday Twice Daily Relief) blood pressure test kit-large #1 ea 07/31/21 11/25/23 Unknown Rx pen needle, diabetic 33 gauge x #100 ea 09/22/21 11/25/23 Unknown Rx magnesium oxide 400 mg (241.3 mg 400 mg PO DAILY #1 tab 08/10/22 11/25/23 Unknown Rx magnesium) tablet (MagOx) metoprolol tartrate 50 mg tablet 50 mg PO .three times day #1 tab 08/10/22 11/25/23 Unknown Rx flash glucose sensor #2 ea 05/06/23 11/25/23 Unknown Rx rosuvastatin 40 mg tablet See Rx Instructions .Route 06/03/23 11/25/23 Unknown Rx .COMPLEX #90 tabs tramadol 50 mg tablet 50 mg PO Q6H PRN pain #60 tabs 08/19/23 11/25/23 Unknown Rx zolpidem 12.5 mg tablet,extended 12.5 mg PO .at bedtime #30 tabs 10/26/23 11/25/23 Unknown Rx release,multiphase (Ambien CR) nortriptyline 10 mg capsule 10 mg PO .at bedtime #90 caps 11/25/23 11/25/23 Unknown Rx empagliflozin 25 mg tablet 25 mg PO QAM #90 tabs 12/06/23 Unknown Rx (Jardiance) blood-glucose sensor (FreeStyle #1 kit 12/08/23 Unknown Rx Sara 3 Sensor device) semaglutide 2 mg/dose (8 mg/3 mL) See Rx Instructions .Route 12/08/23 Unknown Rx subcutaneous pen injector (Ozempic) .COMPLEX #3 mL metformin 500 mg tablet,extended 1,000 mg (2 x 500 mg) PO BID 30 12/20/23 Unknown Rx release 24 hr days #120 tabs glipizide 5 mg tablet 5 mg PO DAILY PRN diabetes #90 tabs 12/24/23 Unknown Rx Allergies Allergy/AdvReac Type Severity Reaction Status Date / Time No Known Allergies Allergy Verified 11/25/23 20:08 PFSH Acute 2 PFSH: Medical History Osteomyelitis of foot, right, acute Diabetes mellitus with hyperglycemia, with long-term current use of insulin Hyperlipidemia, mixed Neuropathic pain Insomnia Hypertension Surgical History History of heart bypass surgery July 2022 History of knee surgery both Family History Other Cancer Dementia Diabetes Lung disease Neuropathic pain Denies family history of Chronic kidney disease (CKD) Hypertension Stroke Social History Smoking and tobacco/nicotine status: never used tobacco/nicotine Second hand smoke exposure: No Alcohol intake: current Alcohol intake frequency: holidays/special occasions only Substance/Drug Use: never Adopted: No Caregiver/support person: No Lives independently: Yes Household members: spouse Housing: House Number of children: 2 service: No Current occupational status: employed Current occupation: [employer] Current occupational exposures/hazards: No Pets and animals: Yes Do you think of yourself as: Straight/Heterosexual Current gender identity: Male Vitals/I&O/Wt Last Vital Signs Temp 97.6 F 12/25/23 18:00 Pulse 146 H 12/25/23 20:30 Resp 17 12/25/23 20:30 BP 122/78 12/25/23 20:30 Pulse Ox 96 12/25/23 20:30 O2 Del Method Room Air 12/25/23 18:21 12/25/23 12/25/23 12/25/23 06:59 14:59 22:59 Intake Total 1024.750 / 1024.750 Balance 1024.750 / 1024.750 Weight last 48 hrs Weight 92.986 kg Physical Exam 2 Narrative: Awake and alert Signs of dehydration No sign of fluid overload Pleasant cooperative Nonfocal neuroexam Abdomen soft S1, S2 A-fib RVR Currently on room air Pleasant cooperative Nonfocal neuroexam Appears stated age Data 12/25/23 18:00 12/25/23 18:00 A&P Assessment and plan (1) Diabetic keto-acidosis: Qualifiers: Diabetes mellitus complication detail: without coma Diabetes mellitus type: other specified (including KERI) Qualified Code(s): E13.10 - Other specified diabetes mellitus with ketoacidosis without coma (2) Atrial fibrillation with rapid ventricular response: (3) Acute kidney injury: (4) Neuropathic pain: (5) Insomnia: Qualifiers: Insomnia type: due to medical condition Qualified Code(s): G47.01 - Insomnia due to medical condition Plan DKA Start DKA protocol Start insulin Start normal saline with potassium supplementation Check BMP now Add bicarb drip for severe metabolic acidosis N.p.o. ICU nurse notified to stop insulin if potassium below 3.5 Low blood sugar 250 will add D5 half-normal saline with potassium supplementation 40 mEq New onset A-fib RVR Currently on Cardizem drip Will add p.o. Cardizem once he is able to eat and tolerate diet Therapeutic Lovenox added for Fortino Vascor of 5 If creatinine worsens he may be changed to once daily therapeutic regimen Acute kidney injury likely related dehydration Anticipating improvement with IV fluids Lactic acidemia related to dehydration secondary to nausea and vomiting Full code N.p.o. Admit to ICU Check magnesium, TSH, B12, A1c level History of quadruple bypass, Dr. 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
[2023-12-25] MEDS: metoprolol tartrate 50 mg Tablet PO (21:25)
[2023-12-25 21:45] LABS: D Dimer 0.35 ug/mLFEU (0-0.59)
[2023-12-25 21:51] LABS: Glucose Point of Care 360 mg/dL (70-110)
[2023-12-25 22:04] LABS: Add Urine Culture? No; Add Urine Microscopic? YES; Bacteria Urine TRACE /hpf; Bilirubin Urine Neg (Negative); Blood Urine Neg (Negative); Glucose Urine UA 4+ (Normal); Ketones Urine 3+ (Negative); Leukocyte Esterase Urine Negative (Negative); Mucus Urine 2+ /hpf; Nitrate Urine Negative (Negative); Protein Urine Trace (Negative); RBC Urine 0-4 /hpf (0-2); Specific Gravity, Urine 1.015 (1.005-1.030); Urine Appearance Clear (CLEAR); Urine Color Yellow (Yellow); Urobilinogen Urine Neg (Negative); pH Urine 5 (5-7)
[2023-12-25 22:25] LABS: Estmated Average Glucose 209; Hemoglobin A1C 8.9 % (4.0-6.0)
[2023-12-25 22:33] LABS: Magnesium 2.3 mg/dL (1.7-2.3)
[2023-12-25 22:39] LABS: Lactic Acid level (Lactate) 3.2 mmol/L (0.5-2.2)
[2023-12-25] MEDS: INSULIN REGULAR IN 0.9 % NACL 100 UNIT/100 ML BAG 8 UNIT IV (22:39)
[2023-12-25] MEDS: enoxaparin 100 mg/mL Syringe 90 MG SUBCUT (23:27)
[2023-12-25] MEDS: sodium chlor 0.9% + KCl 40 mEq 40 MEQ/1,000 ML BAG 100 MEQ IV (23:28)
[2023-12-25] MEDS: sodium bicarbonate 150 MEQ in dextrose 5% 1,000 ML 100 MEQ IV (23:28)
[2023-12-25 23:49] LABS: Vitamin B12 1476 pg/mL (232-1245)
[2023-12-25 23:56] LABS: Anion Gap 23.2 (5-19); Blood Urea Nitrogen 37 mg/dL (6-20); Calcium 8.8 mg/dL (8.5-10.5); Carbon Dioxide 19 mmol/L (22-29); Chloride 100 mmol/L (98-107); Creatinine Clr Calc Pharmacy 72.8889; Glomerular Filtration Rate 56.5 mL/min (90-130); Glucose 249 mg/dL (65-115); Osmolality Calculated 303 mOsm/kg (285-295); Potassium 4.2 mmol/L (3.5-5.1); Sodium 138 mmol/L (136-145)
[2023-12-26] VITALS (111 sets, daily range): BP systolic 99–157; BP diastolic 66–102; PULSE 71–142; RESP 12–30; TEMP 36.6–36.8; O2SAT 91–98; BMI 27.4
[2023-12-26 00:05] LABS: Glucose Point of Care 237 mg/dL (70-110)
[2023-12-26 00:39] LABS: Troponin 5 6HR 49.25 ng/L (0-15); Troponin 5 6HR Delta 11.25 ng/L (0-12)
[2023-12-26 01:08] LABS: Glucose Point of Care 156 mg/dL (70-110)
[2023-12-26] MEDS: dextrose 5%-ns 0.45% + KCl 40 1,000 ML 100 MEQ IV ×3 (01:36→20:01)
[2023-12-26 02:06] LABS: Glucose Point of Care 163 mg/dL (70-110)
[2023-12-26 03:14] LABS: Glucose Point of Care 201 mg/dL (70-110)
[2023-12-26] MEDS: lidocaine 2% viscous 15 ML, aluminum-mag hydrox-simethicon 30 ML, sucralfate oral liq 1 GM PO ×2 (04:10→17:58)
[2023-12-26] MEDS: dilTIAZem 100 MG in sodium chloride 0.9% (add-van) 100 ML 10 MG IV (04:15)
[2023-12-26 04:31] LABS: Glucose Point of Care 198 mg/dL (70-110)
[2023-12-26 05:16] LABS: Glucose Point of Care 215 mg/dL (70-110)
[2023-12-26 05:56] LABS: Basophils % 0.2 %; Hematocrit 42.5 % (37-53); Lymphocytes % 7.8 %; Mean Corpuscular HGB Conc 32.9 g/dL (30-55); Mean Corpuscular Hemoglobin 28.8 pg (27-33); Mean Corpuscular Volume 87.4 fl (82-101); Mean Platelet Volume 10.7 fL (7.4-10.4); Monocytes # 1.2 10^3/uL (0.2-0.9); Monocytes % 8.7 %; Neutrophils # 10.92 10^3/uL (1.8-7.7); Neutrophils % 82.9 %; Nucleated Red Blood Cells % 0 %; Platelet Count 245 10^3/cmm (157-399); Red Blood Count 4.86 10^6/uL (3.85-5.65); Red Cell Distribution Width 12.8 % (12.1-15.1); White Blood Count 13.16 10^3/uL (3.29-11.43)
[2023-12-26 06:25] LABS: Glucose Point of Care 302 mg/dL (70-110)
[2023-12-26 06:26] LABS: Anion Gap 24.6 (5-19); Blood Urea Nitrogen 31 mg/dL (6-20); C Reactive Protein 4.7 mg/L (0.0-4.9); Calcium 8.6 mg/dL (8.5-10.5); Carbon Dioxide 17 mmol/L (22-29); Chloride 99 mmol/L (98-107); Creatinine Clr Calc Pharmacy 86.1415; Glomerular Filtration Rate 68.5 mL/min (90-130); Glucose 225 mg/dL (65-115); Magnesium 2.8 mg/dL (1.7-2.3); Osmolality Calculated 296 mOsm/kg (285-295); Phosphorus 2.5 mg/dL (2.5-4.5); Potassium 4.6 mmol/L (3.5-5.1); Sodium 136 mmol/L (136-145)
[2023-12-26 07:50] LABS: Glucose Point of Care 222 mg/dL (70-110)
--- NOTE | 2023-12-26 08:00 | ECG_ITS ---
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 Measurements Intervals [place] Rate: 98 P: 76 MI: 156 QRS: -34 QRSD: 145 T: 99 QT: 368 QTc: 471 Interpretive Statements Atrial fibrillation with controlled ventricular response rate. INTRAVENTRICULAR CONDUCTION DELAY [130+ ms QRS DURATION] INFERIOR MYOCARDIAL INFARCTION , POSSIBLY ACUTE [40+ ms Q WAVE AND/OR ST/T ABNORMALITY IN II/aVF] ACUTE KS Compared to ECG 12/25/2023 18:03:33 Intraventricular conduction delay now present Atrial fibrillation no longer present Left-axis deviation no longer present T-wave abnormality no longer present Possible ischemia no longer present Myocardial infarct finding still present Electronically Signed On 12-26-2023 22:14:58 CDT by Alyx Thomson M.D. [email or web address]
[2023-12-26] MEDS: dilTIAZem 100 MG in sodium chloride 0.9% (add-van) 100 ML 15 MG IV (08:27)
[2023-12-26] MEDS: magnesium oxide 400 mg tablet PO (08:28)
[2023-12-26] MEDS: aspirin 81 mg EC Tablet PO (08:28)
[2023-12-26] MEDS: metoprolol tartrate 50 mg Tablet PO ×3 (08:29→20:02)
[2023-12-26 09:02] LABS: Anion Gap 21.5 (5-19); Blood Urea Nitrogen 28 mg/dL (6-20); Calcium 8.5 mg/dL (8.5-10.5); Carbon Dioxide 18 mmol/L (22-29); Chloride 102 mmol/L (98-107); Glomerular Filtration Rate 68.5 mL/min (90-130); Glucose 211 mg/dL (65-115); Osmolality Calculated 296 mOsm/kg (285-295); Potassium 4.5 mmol/L (3.5-5.1); Sodium 137 mmol/L (136-145)
[2023-12-26] MEDS: enoxaparin 100 mg/mL Syringe 90 MG SUBCUT ×2 (10:03→21:58)
[2023-12-26 10:34] LABS: Glucose Point of Care 154 mg/dL (70-110)
[2023-12-26 12:11] LABS: Glucose Point of Care 152 mg/dL (70-110)
[2023-12-26 12:37] LABS: Anion Gap 19.7 (5-19); Blood Urea Nitrogen 24 mg/dL (6-20); Calcium 8.4 mg/dL (8.5-10.5); Carbon Dioxide 19 mmol/L (22-29); Chloride 102 mmol/L (98-107); Creatinine Clr Calc Pharmacy 96.3887; Glomerular Filtration Rate 76.5 mL/min (90-130); Glucose 163 mg/dL (65-115); Osmolality Calculated 290 mOsm/kg (285-295); Potassium 4.7 mmol/L (3.5-5.1); Sodium 136 mmol/L (136-145)
--- NOTE | 2023-12-26 14:14 | P.PN_ITS ---
Subjective 2 Subjective: Patient was seen this morning, currently receiving his cardiac echocardiogram, denies any chest pain, no palpitations, no lightheadedness, dizziness, he tells me that were brought this all on was a GI bug, but currently denies any abdominal pain no diarrhea, no flank pain, no dysuria, Vitals/I&O/Wt Last Vital Signs Temp 97.9 F 12/26/23 04:05 Pulse 72 12/26/23 10:30 Resp 15 12/26/23 10:30 BP 125/78 12/26/23 10:30 Pulse Ox 98 12/26/23 10:30 O2 Del Method Room Air 12/26/23 06:05 12/25/23 12/26/23 12/26/23 22:59 06:59 14:59 Intake Total 1024.750 / 2966.433 7573.973 / 3102.723 400.058 / 400.058 Output Total 500 / 500 Balance 1024.750 / 7845.301 7453.973 / 2602.723 400.058 / 400.058 Weight last 48 hrs Weight 94.347 kg Weight 90.718 kg Weight 92.986 kg Physical Exam 2 Const: COMMON NORMALS: no acute distress and patient oriented x3 Resp: COMMON NORMALS: normal respiratory effort, No retractions, No use of accessory muscles and clear to auscultation bilaterally AUSCULTATION: clear to auscultation bilaterally Cardio: COMMON NORMALS: regular rate, regular rhythm, S1 normal heart sound present and S2 normal heart sound present RATE: regular rate RHYTHM: r egular rhythm HEART SOUNDS: S1 normal heart sound present and S2 normal heart sound present GI: COMMON NORMALS: Normal to inspection, nondistended, normoactive bowel sounds present and non-tender Extremity: COMMON NORMALS: no pedal edema Neuro: COMMON NORMALS: patient oriented x3 Psych: COMMON NORMALS: mental status grossly normal Data 12/26/23 05:17 12/26/23 11:55 A&P Assessment and plan (1) Diabetic keto-acidosis: Qualifiers: Diabetes mellitus complication detail: without coma Diabetes mellitus type: other specified (including KERI) Qualified Code(s): E13.10 - Other specified diabetes mellitus with ketoacidosis without coma (2) Atrial fibrillation with rapid ventricular response: (3) Acute kidney injury: (4) Neuropathic pain: (5) Insomnia: Qualifiers: Insomnia type: due to medical condition Qualified Code(s): G47.01 - Insomnia due to medical condition Plan DKA Start DKA protocol Start insulin Start normal saline with potassium supplementation Check BMP now Add bicarb drip for severe metabolic acidosis N.p.o. ICU nurse notified to stop insulin if potassium below 3.5 Low blood sugar 250 will add D5 half-normal saline with potassium supplementation 40 mEq New onset A-fib RVR Currently on Cardizem drip Will add p.o. Cardizem once he is able to eat and tolerate diet Therapeutic Lovenox added for Fortino Vascor of 5 If creatinine worsens he may be changed to once daily therapeutic regimen Acute kidney injury likely related dehydration Anticipating improvement with IV fluids Lactic acidemia related to dehydration secondary to nausea and vomiting Full code N.p.o. 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 [place], No active chest pain, troponin 29 High BNP noted Requested D-dimer Patient requires hospitalization for diabetic ketoacidosis requiring IV insulin, with A-fib with RVR, requiring Cardizem Attestations 2 Medical Necessity Statement*: Patient requires hospitalization for diabetic ketoacidosis, currently on insulin drip, anion gap continues to be prolonged, monitor potassium, magnesium, electrolytes, monitor and monitor anion gap, A-fib with RVR continue Cardizem drip, Coding Level of Care Code Critical Care >/= 30 minutes Critical care time (in minutes): 45 The high probability of a clinically significant, sudden or life threatening deterioration, as referenced in this documentation, required my full and direct attention, intervention and personal management. The critical care time shown is in addition to time spent performing any reported separately billable procedures and includes the following: [x] Data and vital sign review and interpretation [x ] Patient assessment, examination and intervention [x] Medication orders and management [x] Patient/Family updates as able [x] Care Coordination and Documentation. Diagnoses Diabetic keto-acidosis E13.10 Diabetes mellitus complication detail: without coma Diabetes mellitus type: other specified (including KERI) Atrial fibrillation with rapid ventricular response I48.91 Acute kidney injury N17.9 Neuropathic pain M79.2 Insomnia due to medical condition G47.01 Insomnia type: due to medical condition
[2023-12-26] MEDS: dilTIAZem 60 mg Tablet 30 MG PO ×2 (14:35→20:02)
[2023-12-26] MEDS: dilTIAZem 100 MG in sodium chloride 0.9% (add-van) 100 ML 12.5 MG IV (14:37)
[2023-12-26 17:48] LABS: Glucose Point of Care 142 mg/dL (70-110)
[2023-12-26 17:56] LABS: Anion Gap 15.8 (5-19); Blood Urea Nitrogen 18 mg/dL (6-20); Calcium 8.3 mg/dL (8.5-10.5); Carbon Dioxide 22 mmol/L (22-29); Chloride 104 mmol/L (98-107); Creatinine Clr Calc Pharmacy 120.4858; Glomerular Filtration Rate 98.9 mL/min (90-130); Glucose 149 mg/dL (65-115); Osmolality Calculated 289 mOsm/kg (285-295); Potassium 4.8 mmol/L (3.5-5.1); Sodium 137 mmol/L (136-145)
[2023-12-26 19:05] LABS: Glucose Point of Care 169 mg/dL (70-110)
[2023-12-26 20:01] LABS: Glucose Point of Care 115 mg/dL (70-110)
[2023-12-26 20:41] LABS: Anion Gap 15.5 (5-19); Blood Urea Nitrogen 16 mg/dL (6-20); Calcium 8.4 mg/dL (8.5-10.5); Carbon Dioxide 21 mmol/L (22-29); Chloride 103 mmol/L (98-107); Creatinine Clr Calc Pharmacy 120.4858; Glomerular Filtration Rate 98.9 mL/min (90-130); Glucose 119 mg/dL (65-115); Osmolality Calculated 282 mOsm/kg (285-295); Potassium 4.5 mmol/L (3.5-5.1); Sodium 135 mmol/L (136-145)
[2023-12-26 21:03] LABS: Glucose Point of Care 124 mg/dL (70-110)
--- NOTE | 2023-12-26 21:08 | PC.NURSE ---
Addendum entered by Rosalva Joseph RN 12/26/23 21:20: Dr Sanchez gave order for q4h BMP to be d/c, AM labs only. clarified D5 1/2NS +40K was running at 100mL and if Dr wanted them D/c. did want fluids d/c. Original Note: INSULIN GTT contacted Dr Sanchez with newest lab results and IV medications. insulin drip at 1 unit/hr, IVF D5 1/2 NS +40 Kcl at 75mL/hr, new anion gap 15.5, K+ 4.5. order given to turn insulin drip off, place pt on medium dose sliding scale, administer 30 units lantus now, and place pt on carb consistent diet.
--- NOTE | 2023-12-26 21:53 | USCV_ITS ---
Mayito Akbar Age: 58 Gender: M : 1965 Exam Date: 12/26/2023 06:13 Ordering Phys: Aimee Sanchez MD Technologist: ISIDRO [place] [facility] [place]: afib BP: 141 / 767 HR: 116 Rhythm: Sinus Technical Quality: Adequate MEASUREMENTS (Male / Female) Normal Values 2D ECHO LV Diastolic Diameter PLAX 3.0 cm 4.2 - 5.9 / 3.9 - 5.3 cm IVS Diastolic Thickness 1.5 cm 0.6 - 1.0 / 0.6 - 0.9 cm IVS Systolic Thickness 1.6 cm LVPW Diastolic Thickness 1.3 cm 0.6 - 1.0 / 0.6 - 0.9 cm LVPW Systolic Thickness 2.0 cm LVOT Diameter 2.7 cm LV Ejection Fraction 2D Teich 60.0 % LV Ejection Fraction MOD 2C 71.2 % LV Ejection Fraction 2C AL 70.4 % LA Diameter 3.5 cm RA Systolic Volume 4C AL 43.2 ml RA Systolic Volume 4C MOD 42.5 ml Aorta at Sinotubular Diameter 2.9 cm IVC Diameter 1.6 cm DOPPLER AV Peak Velocity 122.7 cm/s LVOT Peak Velocity 87.0 cm/s AV Area Cont Eq vti 3.9 cm squared AV Area Cont Eq pk 4.0 cm squared MV Peak Velocity 118.0 cm/s MV Area PHT 4.1 cm squared Mitral E to A Ratio 1.3 TR Peak Velocity 160.0 cm/s TR Peak Gradient 10.2 mmHg TV Peak E Velocity 100.0 cm/s Right Atrial Pressure 3.0 mmHg Pulmonary Artery Systolic Pressu 13.2 mmHg FINDINGS Left Ventricle Normal LV size and ejection fraction of 60 to 70%. Mild concentric left trickle hypertrophy. Segmental wall motion is difficult because of the arrhythmia. Normal gross abnormalities noted Right Ventricle The right ventricle is normal in size and function. Right Atrium Mildly dilated Left Atrium Mildly dilated Mitral Valve Mild mitral valve regurgitation. Aortic Valve Thickened aortic valve. Tricuspid Valve Trace tricuspid valve regurgitation. Pulmonic Valve Pulmonic valve not well visualized. Pericardium Normal pericardium without effusion. Aorta Normal ascending aorta dimension. IVC Normal inferior vena cava. CONCLUSIONS Normal LV size and ejection fraction of 60 to 70%. Mild concentric left trickle hypertrophy. Segmental wall motion is difficult because of the arrhythmia. Normal gross abnormalities noted. Mild biatrial enlargement. Thickened aortic valve. Mild mitral valve regurgitation. Trace tricuspid valve regurgitation. There is no pericardial effusion. No similar previous studies are available for comparison Dr Alyx Thomson MD FAC (Electronically Signed) Final Date: 26 December 2023 16:42 S
[2023-12-26] MEDS: insulin glargine 100 units/1 mL 30 UNIT SUBCUT (21:59)
[2023-12-27] VITALS (29 sets, daily range): BP systolic 125–177; BP diastolic 66–124; PULSE 75–159; RESP 11–25; TEMP 36.5–36.8; O2SAT 91–97
--- NOTE | 2023-12-27 00:37 | PC.NURSE ---
HEARTBURN pt c/o heartburn/indigestion. requested something to tx symptoms. contacted Dr Sanchez. order given for one time dose of GI cocktail.
[2023-12-27] MEDS: lidocaine 2% viscous 15 ML, aluminum-mag hydrox-simethicon 30 ML, sucralfate oral liq 1 GM PO ×2 (01:20→09:35)
[2023-12-27] MEDS: dilTIAZem 60 mg Tablet 30 MG PO ×2 (01:22→08:26)
[2023-12-27 04:09] LABS: Glucose Point of Care 189 mg/dL (70-110)
--- NOTE | 2023-12-27 04:20 | PC.NURSE ---
HR 150's pt up to BSC, had BM. HR sustaining in the 150's, expressing symptoms of heart palpitations. patient placed back in bed. heart monitor shows HR trending down to low 120's. Dr Sanchez called, updated on pt status. no orders at this time. reassess possible interventions if HR sustains above 140 per hospitalist. plan of care ongoing.
[2023-12-27 04:36] LABS: Basophils % 0.3 %; Lymphocytes # 1.7 10^3/uL (0.8-4.8); Lymphocytes % 14.7 %; Mean Corpuscular HGB Conc 32.6 g/dL (30-55); Mean Corpuscular Hemoglobin 28.5 pg (27-33); Mean Corpuscular Volume 87.5 fl (82-101); Mean Platelet Volume 10.7 fL (7.4-10.4); Monocytes # 0.8 10^3/uL (0.2-0.9); Monocytes % 7.1 %; Neutrophils % 77.6 %; Nucleated Red Blood Cells % 0 %; Platelet Count 203 10^3/cmm (157-399); White Blood Count 11.48 10^3/uL (3.29-11.43)
[2023-12-27 04:56] LABS: Alanine Aminotransferase 12 U/L (0-41); Albumin Level 3.6 g/dL (3.5-5.2); Alkaline Phosphatase 72 U/L (40-130); Anion Gap 18.4 (5-19); Aspartate Amino Transferase 13 U/L (0-40); Blood Urea Nitrogen 16 mg/dL (6-20); C Reactive Protein 6.4 mg/L (0.0-4.9); Calcium 8.7 mg/dL (8.5-10.5); Carbon Dioxide 21 mmol/L (22-29); Chloride 102 mmol/L (98-107); Creatinine Clr Calc Pharmacy 120.4858; Globulin 3.2 g/dL (1.3-4.6); Glomerular Filtration Rate 98.9 mL/min (90-130); Glucose 196 mg/dL (65-115); Magnesium 2.6 mg/dL (1.7-2.3); Osmolality Calculated 291 mOsm/kg (285-295); Phosphorus 1.5 mg/dL (2.5-4.5); Potassium 4.4 mmol/L (3.5-5.1); Sodium 137 mmol/L (136-145); Total Bilirubin 0.3 mg/dL (0.15-1.2); Total Protein 6.8 g/dL (6.6-8.7)
[2023-12-27 04:58] LABS: NT Pro B Type Natriuretic Pept 3475 pg/mL (0-125)
--- NOTE | 2023-12-27 05:23 | PC.NURSE ---
HR AND PT BEHAVIOR pt put call light on, c/o irritation that when he moves in the slightest his HR jumps up to 140s-150s. states he thinks the cardizem drip should be restarted. wanted the doctor notified. typewriter mechanic explained that had been notified of status, current cardiac meds pt is getting, and trending VS earlier in the shift. also explained dr wanted monitoring for now with consideration of medications pt is already getting as well as decrease in HR to 110's-120's, with intervention if HR sustained above 140. pt verbalized understanding but was brisk with response to typewriter mechanic. was notified of pt concern and current HR, no new orders at this time with HR currently at 106.
--- NOTE | 2023-12-27 06:06 | PC.NURSE ---
HR 150s Dr notified pt HR in 150's, requested early administration of AM cardiac medications. order given to administer one time dose IVP 10mg cardizem. plan of care continued.
[2023-12-27] MEDS: dilTIAZem 5 mg/mL SDV 5 mL 10 MG IVP (06:18)
[2023-12-27 08:00] LABS: Glucose Point of Care 119 mg/dL (70-110)
--- NOTE | 2023-12-27 08:10 | ECG_ITS ---
[facility] Test Date: 2023-12-27 Pat Name: Akbar Edmond Department: Room: ICU02 Gender: Male System Administrator: : 1965 Requested By: Julien Serrano Order Number: [id number] Laverne MD: Madhav Dawn M.D. Measurements Intervals [place] Rate: 137 P: 265 CO: 132 QRS: -48 QRSD: 99 T: 164 QT: 303 QTc: 458 Interpretive Statements ATRIAL FIBRILLATION WITH RAPID VENTRICULAR RATE POSSIBLE ANTERIOR MYOCARDIAL INFARCTION , OF INDETERMINATE AGE [30 ms Q WAVE IN V3/V4, OR R < 0.2 mV IN V4] INFERIOR MYOCARDIAL INFARCTION , PROBABLY OLD [40+ ms Q WAVE AND/OR ST/T ABNORMALITY IN II/aVF] MODERATE T-WAVE ABNORMALITY, CONSIDER LATERAL ISCHEMIA [-0.1+ mV T-WAVE IN I/aVL/V5/V6] Compared to ECG 12/25/2023 21:12:02 T-wave abnormality now present Possible ischemia now present Intraventricular conduction delay no longer present Myocardial infarct finding still present Electronically Signed On 12-28-2023 16:00:41 CDT by Madhav Dawn M.D. [id number]
[2023-12-27] MEDS: magnesium oxide 400 mg tablet PO (08:26)
[2023-12-27] MEDS: aspirin 81 mg EC Tablet PO (08:26)
[2023-12-27] MEDS: pantoprazole DR 40 mg Tablet PO (08:26)
[2023-12-27] MEDS: metoprolol tartrate 50 mg Tablet PO ×2 (08:26→15:16)
[2023-12-27] MEDS: nitroglycerin 0.4 mg sublingual Tablet 0.400000000000000022 MG SUBLINGUAL ×2 (09:21→09:26)
[2023-12-27] MEDS: phosphorus 250 mg Tablet PO (09:35)
[2023-12-27] MEDS: enoxaparin 100 mg/mL Syringe 90 MG SUBCUT (09:36)
[2023-12-27] MEDS: sucralfate 1 gm Tablet PO ×2 (09:39→11:39)
--- NOTE | 2023-12-27 10:20 | PC.NURSE ---
at shift change HR 140s 150s c/o chest pain nausea and heart burn, ekg performed cardezim titrated per DEC. HR not improved by cardezim, Dr. Serrano gave orders per DEC. at this time patient reports improved symptoms and is resting, HR 70s
[2023-12-27 10:39] LABS: Troponin(5th) Baseline 43 ng/L (0-15)
[2023-12-27] MEDS: dilTIAZem 30 mg Tablet PO (11:06)
--- NOTE | 2023-12-27 11:29 | ECG_ITS ---
[facility] Test Date: 2023-12-27 Pat Name: Akbar Edmond Department: Room: ICU02 Gender: Male Delivery Person: : 1965 Requested By: Julien Serrano Order Number: [id number] Galloway MD: Madhav Dawn M.D. Measurements Intervals [place] Rate: 78 P: 0 MA: 0 QRS: -44 QRSD: 105 T: 134 QT: 410 QTc: 469 Interpretive Statements ATRIAL FLUTTER/TACHYCARDIA LEFT VENTRICULAR HYPERTROPHY AND ST-T CHANGE [VOLTAGE CRITERIA PLUS ST/T ABNORMALITY] POSSIBLE ANTERIOR MYOCARDIAL INFARCTION , OF INDETERMINATE AGE [30 ms Q WAVE IN V3/V4, OR R < 0.2 mV IN V4] INFERIOR MYOCARDIAL INFARCTION , OF INDETERMINATE AGE [40+ ms Q WAVE AND/OR ST/T ABNORMALITY IN II/aVF] Compared to ECG 12/27/2023 08:17:53 Left ventricular hypertrophy now present ST (T wave) deviation now present Junctional tachycardia no longer present T-wave abnormality no longer present Possible ischemia no longer present Myocardial infarct finding still present Electronically Signed On 12-28-2023 15:59:17 CDT by Madhav Dawn M.D. [id number]
[2023-12-27 11:32] LABS: Glucose Point of Care 141 mg/dL (70-110)
[2023-12-27] MEDS: insulin lispro 100 unit/1 mL SUBCUT (11:40)
[2023-12-27] MEDS: FUROsemide 10 mg/mL SDV 2mL 20 MG IVP (11:51)
[2023-12-27] MEDS: ondansetron 2 mg/ML SDV 2 mL 4 MG IVP (11:58)
[2023-12-27 12:57] LABS: Troponin 5 2HR 40.36 ng/L (0-15)
[2023-12-27 12:58] LABS: Troponin 5 2HR Delta -2.64 ABS# (0-10)
--- NOTE | 2023-12-27 14:08 | PC.NURSE ---
Report called to Krys yip
[2023-12-27] MEDS: dilTIAZem 100 MG in sodium chloride 0.9% (add-van) 100 ML 7.5 MG IV (14:37)
[2023-12-27] MEDS: dilTIAZem 60 mg Tablet PO (14:39)
--- NOTE | 2023-12-27 15:47 | P.PN_ITS ---
Subjective 2 Subjective: Patient was seen this morning, he went into A-fib with RVR early this morning, placed back on Cardizem drip, currently heart rates in the 70s, currently off insulin drip, anion gap has closed, on subcu insulin, he is alert oriented x 3, following all commands he did complain of chest discomfort this morning EKG shows A-fib no acute ST-T wave changes troponins 40, he does complain of severe acid reflux, we discussed giving him a GI cocktail, Protonix, Carafate, him and his have made the decision that they want Akbar to be transferred to [facility] as that is where he has received most of his care, discussed potentially consulting cardiology here, monitoring here, patient is adamant he wants transferred, discussed the possibility that his transfer might not be covered by his insurance company as it is not a medical necessity but patient request, he voiced understanding, all questions answered, agreed to proceed to transfer, spoke to [facility], spoke to their hospitalist, agreed for transfer, now awaiting a bed, patient was reexamined early in the afternoon, his chest pain has resolved, heart rates are A-fib, in the 70s, he is normotensive, discussed him being accepted to [facility], awaiting a bed, he voiced understanding Vitals/I&O/Wt Last Vital Signs Temp 97.7 F 12/27/23 04:00 Pulse 104 H 12/27/23 14:00 Resp 19 H 12/27/23 14:00 BP 148/87 12/27/23 14:00 Pulse Ox 95 12/27/23 14:00 O2 Del Method Room Air 12/27/23 00:00 12/27/23 12/27/23 12/27/23 06:59 14:59 22:59 Intake Total 360 / 2095.317 71.709 / 71.709 Output Total 1600 / 2700 1475 / 1475 Balance -1240 / -604.683 -1403.291 / -1403.291 Weight last 48 hrs Weight 94.982 kg Weight 94.347 kg Weight 90.718 kg Weight 92.986 kg Physical Exam 2 Const: COMMON NORMALS: no acute distress and patient oriented x3 Resp: COMMON NORMALS: normal respiratory effort, No retractions, No use of accessory muscles and clear to auscultation bilaterally AUSCULTATION: clear to auscultation bilaterally Cardio: COMMON NORMALS: regular rate, S1 normal heart sound present and S2 normal heart sound present RATE: regular rate RHYTHM: abnormal rhythm irregularly irregular HEART SOUNDS: S1 normal heart sound present and S2 normal heart sound present GI: COMMON NORMALS: Normal to inspection, nondistended, normoactive bowel sounds present and non-tender Extremity: COMMON NORMALS: no pedal edema Neuro: COMMON NORMALS: patient oriented x3 Psych: COMMON NORMALS: mental status grossly normal Data 12/27/23 04:08 12/27/23 04:08 A&P Assessment and plan (1) Diabetic keto-acidosis: Qualifiers: Diabetes mellitus complication detail: without coma Diabetes mellitus type: other specified (including KERI) Qualified Code(s): E13.10 - Other specified diabetes mellitus with ketoacidosis without coma (2) Atrial fibrillation with rapid ventricular response: (3) Acute kidney injury: (4) Neuropathic pain: (5) Insomnia: Qualifiers: Insomnia type: due to medical condition Qualified Code(s): G47.01 - Insomnia due to medical condition Plan DKA Anion gap closed, transition to subcu insulin with Lantus Continue moderate dose sliding scale, As Lantus 20 units at bedtime New onset A-fib RVR Currently on Cardizem drip Increase p.o. Cardizem to 60 every 6 ? 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 Mild concentric left trickle hypertrophy. Segmental wall motion is difficult because of the arrhythmia. Normal gross abnormalities noted. Mild biatrial enlargement. Thickened aortic valve. Mild mitral valve regurgitation. Trace tricuspid valve regurgitation. There is no pericardial effusion. No similar previous studies are available for comparison Patient requires hospitalization for A-fib with RVR, on Cardizem drip, arrange transfer to tertiary level center Attestations 2 Medical Necessity Statement*: Patient requires hospitalization for A-fib with RVR, requesting transfer to [facility], septic awaiting bed currently on Cardizem drip Diagnoses Diabetic keto-acidosis E13.10 Diabetes mellitus complication detail: without coma Diabetes mellitus type: other specified (including KERI) Atrial fibrillation with rapid ventricular response I48.91 Acute kidney injury N17.9 Neuropathic pain M79.2 Insomnia due to medical condition G47.01 Insomnia type: due to medical condition
--- NOTE | 2023-12-27 15:53 | PM.TDS ---
Transfer Summary Providers Date of Admission: 12/25/23 20:39 Date of Discharge/Transfer: 12/27/23 Attending Provider at Admission: Aimee Sanchez MD Attending Provider at Transfer: Julien Serrano MD Primary Care Provider: CAROLANN Feliciano Transfer Plans: Anticipated date of transfer: 12/27/23. Diagnoses at Discharge Discharge Diagnosis (1) Diabetic keto-acidosis: Status: Acute Qualifiers: Diabetes mellitus complication detail: without coma Diabetes mellitus type: other specified (including KERI) Qualified Code(s): E13.10 - Other specified diabetes mellitus with ketoacidosis without coma (2) Atrial fibrillation with rapid ventricular response: Status: Acute (3) Acute kidney injury: Status: Acute (4) Neuropathic pain: Status: Chronic (5) Insomnia: Status: Chronic Qualifiers: Insomnia type: due to medical condition Qualified Code(s): G47.01 - Insomnia due to medical condition Reason for Visit Reason for Visit Weakness Hospital Course Hospital Course Akbar Edmond is a 58 year old male with history of quadruple bypass, frh-[id number] type 2 diabetes takes Ozempic and Jardiance, metformin, CABG 18 months ago on aspirin and metoprolol recently seen his counter dish carrier in [place] who started him on Toprol succinate instead of tartrate, not on anticoagulating agent, presented with chief complaint nausea vomiting. Patient is stating that his symptoms started yesterday with chief complaint of nausea and vomiting, she noticed palpitation and heart rate was around 140s which she detected on his Apple Watch, blood sugar was running high as well around 400s, he was not able to take any of his medications because of persistent vomiting, he stating that he was vomiting almost every hour. No complaint of fever, diarrhea or chest pain In the ER he has been diagnosed with A-fib RVR put on Cardizem drip, DKA started on insulin drip I am requesting BMP to check his potassium level he has been getting insulin without potassium supplementation His A1c is around 8.9 most likely need insulin Patient was admitted to [facility] for diabetic ketoacidosis, managed in the ICU, insulin drip, required electrolyte replacement, IV fluids, once blood sugars are reasonable anion gap closed and transitioned to subcu insulin with Lantus 20 units at bedtime For VICKIE sec to dehydration, resolving Lactic acidosis secondary to DKA, nausea vomiting, resolving For new onset A-fib with RVR, ? Managed with therapeutic Lovenox ? Initially managed with Cardizem drip, heart rates were well-controlled, transition to p.o. Cardizem ? However the morning of 12/27/2023, patient went back into A-fib with RVR, currently on a Cardizem drip at 7.5 p.o. Cardizem increased to 60 mg p.o. every 24 hours currently heart rates well-controlled at 75, patient asymptomatic, plan on discontinuing Cardizem drip, continue metoprolol 50 mg 3 times daily History of CABG and complaints of chest pain, had intermittent episodes of complaints of chest pain throughout his hospitalization the morning of 12/26/2021 for complaints of chest pain troponin was [address]-T wave changes, high BNP noted given 1 dose of IV Lasix, cardiac echo shows EF of 60 to 70%, no gross wall motion abnormalities, Patient request to be transferred to [facility] given his A-fib and his CABG history and most of his physicians are at [facility] patient was accepted at [facility] awaiting a bed Physical Exam Const: COMMON NORMALS: no acute distress and patient oriented x3 Resp: COMMON NORMALS: normal respiratory effort, No retractions, No use of accessory muscles and clear to auscultation bilaterally AUSCULTATION: clear to auscultation bilaterally Cardio: COMMON NORMALS: regular rate, S1 normal heart sound present and S2 normal heart sound present RATE: regular rate RHYTHM: abnormal rhythm HEART SOUNDS: S1 normal heart sound present and S2 normal heart sound present GI: COMMON NORMALS: Normal to inspection, nondistended, normoactive bowel sounds present and non-tender Extremity: COMMON NORMALS: no pedal edema Neuro: COMMON NORMALS: patient oriented x3 Psych: COMMON NORMALS: mental status grossly normal TS Data Studies Completed and Pending Pending at discharge Category Date Time Status C Reactive Protein AM LABS Lab 12/28/23 04:00 Ordered C Reactive Protein AM LABS Lab 12/29/23 04:00 Ordered Complete Blood Count w/Auto AM LABS Lab 12/28/23 04:00 Ordered Complete Blood Count w/Auto AM LABS Lab 12/29/23 04:00 Ordered Comprehensive Metabolic Panel AM LABS Lab 12/28/23 04:00 Ordered Comprehensive Metabolic Panel AM LABS Lab 12/29/23 04:00 Ordered Magnesium AM LABS Lab 12/28/23 04:00 Ordered Magnesium AM LABS Lab 12/29/23 04:00 Ordered NT Pro B Type Natriuretic Pept QAM Lab 12/28/23 06:00 Ordered NT Pro B Type Natriuretic Pept QAM Lab 12/29/23 06:00 Ordered Phosphorus AM LABS Lab 12/28/23 04:00 Ordered Phosphorus AM LABS Lab 12/29/23 04:00 Ordered Troponin(5th) 6 hour. Timed Lab 12/27/23 15:59 Ordered Completed Studies During Hospitalization Category Date Time Status XR chest 1V portable [id number] Stat Exams 12/25/23 18:53 Completed CV. echo complete* [id number] Routine Ultrasound 12/26/23 21:53 Completed Laboratory Last Values WBC 11.48 10^3/uL (3.29-11.43) H 12/27/23 04:08 RBC 4.80 10^6/uL (3.85-5.65) 12/27/23 04:08 Hgb 13.70 g/dL (11.27-16.99) 12/27/23 04:08 Hct 42.0 % (37-53) 12/27/23 04:08 MCV 87.5 fl (82-101) 12/27/23 04:08 MCH 28.5 pg (27-33) 12/27/23 04:08 MCHC 32.6 g/dL (30-55) 12/27/23 04:08 RDW 13.0 % (12.1-15.1) 12/27/23 04:08 Plt Count 203 10^3/cmm (157-399) 12/27/23 04:08 MPV 10.7 fL (7.4-10.4) H 12/27/23 04:08 Neut % (Auto) 77.6 % 12/27/23 04:08 Lymph % (Auto) 14.7 % 12/27/23 04:08 [place] % (Auto) 7.1 % 12/27/23 04:08 Eos % (Auto) 0.0 % 12/27/23 04:08 Baso % (Auto) 0.3 % 12/27/23 04:08 Neut # (Auto) 8.90 10^3/uL (1.8-7.7) H 12/27/23 04:08 Lymph # (Auto) 1.7 10^3/uL (0.8-4.8) 12/27/23 04:08 [place] # (Auto) 0.8 10^3/uL (0.2-0.9) 12/27/23 04:08 Eos # (Auto) 0.0 10^3/uL (0.0-0.8) 12/27/23 04:08 Baso # (Auto) 0.0 10^3/uL (0.0-0.1) 12/27/23 04:08 Nucleated RBC % (auto) 0 % 12/27/23 04:08 Nucleated RBCs # 0.0 /100WBC 12/27/23 04:08 PT 14.20 SECONDS (12.1-14.9) 12/25/23 18:00 INR 1.06 (0.8-1.2) 12/25/23 18:00 D-Dimer 0.35 ug/mLFEU (0-0.59) 12/25/23 18:00 Sodium 137 mmol/L (136-145) 12/27/23 04:08 Potassium 4.4 mmol/L (3.5-5.1) 12/27/23 04:08 Chloride 102 mmol/L (98-107) 12/27/23 04:08 Carbon Dioxide 21 mmol/L (22-29) L 12/27/23 04:08 Anion Gap 18.4 (5-19) 12/27/23 04:08 BUN 16 mg/dL (6-20) 12/27/23 04:08 Creatinine 0.8 mg/dL (0.7-1.2) 12/27/23 04:08 GFR Calculation 98.9 mL/min (90-130) 12/27/23 04:08 Glucose 196 mg/dL (65-115) H 12/27/23 04:08 POC Glucose 141 mg/dL (70-110) H 12/27/23 11:18 Estimat Average Glucose 209 12/25/23 18:00 Hemoglobin A1c 8.9 % (4.0-6.0) H 12/25/23 18:00 Calculated Osmolality 291 mOsm/kg (285-295) 12/27/23 04:08 Lactic Acid 5.6 mmol/L (0.5-2.2) H* 12/25/23 19:09 Lactic Acid (Sepsis) 3.2 mmol/L (0.5-2.2) H 12/25/23 22:13 Calcium 8.7 mg/dL (8.5-10.5) 12/27/23 04:08 Phosphorus 1.5 mg/dL (2.5-4.5) L 12/27/23 04:08 Magnesium 2.6 mg/dL (1.7-2.3) H 12/27/23 04:08 Total Bilirubin 0.3 mg/dL (0.15-1.2) 12/27/23 04:08 AST 13 U/L (0-40) 12/27/23 04:08 ALT 12 U/L (0-41) 12/27/23 04:08 Alkaline Phosphatase 72 U/L (40-130) 12/27/23 04:08 Troponin T Baseline 43 ng/L (0-15) H 12/27/23 09:59 Troponin T 120 Minute 40.36 ng/L (0-15) H 12/27/23 12:20 Delta Troponin T -2.64 ABS# (0-10) L 12/27/23 12:20 Troponin T Hi Sens 6Hr 49.25 ng/L (0-15) H 12/25/23 23:31 Troponin T Hi Sens 6Hr Delta 11.25 ng/L (0-12) 12/25/23 23:31 C-Reactive Protein 6.4 mg/L (0.0-4.9) H 12/27/23 04:08 NT-Pro-B Natriuret Pep 3475 pg/mL (0-125) H 12/27/23 04:08 Total Protein 6.8 g/dL (6.6-8.7) 12/27/23 04:08 Albumin 3.6 g/dL (3.5-5.2) 12/27/23 04:08 Globulin 3.2 g/dL (1.3-4.6) 12/27/23 04:08 Lipase 52 U/L (13-60) 12/25/23 18:00 Vitamin B12 1476 pg/mL (232-1245) H 12/25/23 18:00 Urine Color Yellow (Yellow) 12/25/23 21:40 Urine Appearance Clear (CLEAR) 12/25/23 21:40 Urine pH 5 (5-7) 12/25/23 21:40 Ur Specific [place] 1.015 (1.005-1.030) 12/25/23 21:40 Urine Protein Trace (Negative) 12/25/23 21:40 Urine Glucose (UA) 4+ (Normal) H 12/25/23 21:40 Urine Ketones 3+ (Negative) H 12/25/23 21:40 Urine Blood Neg (Negative) 12/25/23 21:40 Urine Nitrate Negative (Negative) 12/25/23 21:40 Urine Bilirubin Neg (Negative) 12/25/23 21:40 Urine Urobilinogen Neg mg/dL (Negative) 12/25/23 21:40 Ur Leukocyte Esterase Negative (Negative) 12/25/23 21:40 Urine RBC 0-4 /hpf (0-2) H 12/25/23 21:40 Urine WBC None /hpf (0-5) 12/25/23 21:40 Ur Squamous Epith Cells None /hpf (0-5) 12/25/23 21:40 Amorphous Sediment Not Reportable 12/25/23 21:40 Urine Bacteria Trace /hpf (NONE) 12/25/23 21:40 Urine Mucus 2+ /hpf 12/25/23 21:40 Serum Ketones Positive (Negative) H 12/25/23 18:00 Radiology Impressions Chest X-Ray 12/25/23 18:53 IMPRESSION: 1. No acute cardiopulmonary abnormality. Recent Clincial Data Last Vital Signs Temp 97.7 F 12/27/23 04:00 Pulse 104 H 12/27/23 14:00 Resp 19 H 12/27/23 14:00 BP 148/87 12/27/23 14:00 Pulse Ox 95 12/27/23 14:00 O2 Del Method Room Air 12/27/23 00:00 Vital Signs Temp Pulse Resp BP Pulse Ox 12/27/23 14:00 104 H 19 H 148/87 95 12/27/23 13:30 79 20 H 149/83 96 12/27/23 13:00 120 H 14 165/87 96 12/27/23 12:30 79 18 150/92 97 12/27/23 12:00 76 17 163/94 96 12/27/23 11:30 75 16 145/90 96 12/27/23 11:00 76 11 L 149/90 95 12/27/23 10:30 75 17 145/92 94 12/27/23 10:00 75 14 152/82 96 12/27/23 09:30 79 25 H 154/123 95 12/27/23 09:00 98 19 H 177/124 91 12/27/23 08:30 157 H 22 H 159/114 95 12/27/23 08:00 143 H 17 167/111 94 12/27/23 07:30 159 H 18 127/110 95 12/27/23 07:00 117 H 18 132/102 95 12/27/23 06:00 130 H 15 161/94 95 12/27/23 05:54 118 H 12/27/23 05:30 106 H 18 161/94 94 12/27/23 05:00 117 H 17 131/93 94 12/27/23 04:30 127 H 16 131/93 95 12/27/23 04:00 97.7 F 144 H 24 H 125/93 92 Intake & Output/Weight 12/25/23 12/26/23 12/27/23 12/28/23 06:59 06:59 06:59 06:59 Intake Total 3102.723 / 3102.723 2095.317 / 2095.317 71.709 / 71.709 Output Total 500 / 500 2700 / 2700 1475 / 1475 Balance 2602.723 / 2602.723 -604.683 / -604.683 -1403.291 / -1403.291 Weight 94.347 kg 94.982 kg Vitals Last Vital Signs Temp 97.7 F 12/27/23 04:00 Pulse 104 H 12/27/23 14:00 Resp 19 H 12/27/23 14:00 BP 148/87 12/27/23 14:00 Pulse Ox 95 12/27/23 14:00 O2 Del Method Room Air 12/27/23 00:00 TS Medications Medications Acetaminophen (Acetaminophen 500 Mg Tablet) 500 mg PO Q4H PRN PRN Reason: fever Albuterol/Ipratropium (Ipratropium-Albuterol 3 Ml Neb) 3 ml INHALATION Q6H PRN PRN Reason: SHORTNESS OF BREATH Aspirin (Aspirin 81 Mg Ec Tablet) 81 mg PO DAILY FRANCIA Last Admin: 12/27/23 08:26 Dose: 81 mg Diltiazem HCl (Diltiazem 60 Mg Tablet) 60 mg PO Q6H [facility] Last Admin: 12/27/23 14:39 Dose: 60 mg Enoxaparin Sodium (Enoxaparin 100 Mg/Ml Syringe) 90 mg 1 mg/kg (90 mg) SUBCUT Q12H [facility] Last Admin: 12/27/23 09:36 Dose: 90 mg Diltiazem HCl 100 mg/ Sodium (Chloride) 100 mls @ 0 mls/hr IV .Q0M [facility]; Protocol Last Admin: 12/27/23 14:37 Dose: 7.5 mg/hr, 7.5 mls/hr Dextrose (D5w) 500 mls @ 0 mls/hr IV ONCE PRN; Protocol PRN Reason: Adult Acute Hypoglycemia Prot Dextrose (D10w) 125 mls @ 750 mls/hr IV PRN PRN; Protocol PRN Reason: Adult Acute Hypoglycemia Nursing Protocol Dextrose (D10w) 250 mls @ 1,000 mls/hr IV PRN PRN; Protocol PRN Reason: Adult Acute Hypoglycemia Nursing Protocol Insulin Glargine (Insulin Glargine 100 Units/1 Ml) 20 unit SUBCUT BEDTIME [facility] Insulin Human Lispro (Insulin Lispro 100 Unit/1 Ml) 0 unit SUBCUT WM&BEDTIME [facility]; Protocol Last Admin: 12/27/23 11:40 Dose: 4 unit Magnesium Oxide (Magnesium Oxide 400 Mg Tablet) 400 mg PO DAILY [facility] Last Admin: 12/27/23 08:26 Dose: 400 mg Metoprolol Tartrate (Metoprolol Tartrate 50 Mg Tablet) 50 mg PO TID [facility] Last Admin: 12/27/23 15:16 Dose: 50 mg Morphine Sulfate (Morphine 4 Mg/Ml Sdv 1 Ml) 2 mg IVP Q4H PRN PRN Reason: SEVERE PAIN Nitroglycerin (Nitroglycerin 0.4 Mg Sublingual Tablet) 0.4 mg SUBLINGUAL Q5M PRN PRN Reason: CHEST PAIN Last Admin: 12/27/23 09:26 Dose: 0.4 mg Ondansetron HCl (Ondansetron 2 Mg/Ml Sdv 2 Ml) 4 mg IVP Q6H PRN PRN Reason: NAUSEA AND VOMITING Last Admin: 12/27/23 11:58 Dose: 4 mg Pantoprazole Sodium (Pantoprazole Dr 40 Mg Tablet) 40 mg PO BID [facility] Last Admin: 12/27/23 08:26 Dose: 40 mg Potassium Phosphate (Phosphorus 250 Mg Tablet) 250 mg PO BID [facility] Last Admin: 12/27/23 09:35 Dose: 250 mg Sucralfate (Sucralfate 1 Gm Tablet) 1 gm PO AC&BEDTIME [facility] Last Admin: 12/27/23 11:39 Dose: 1 gm Discontinued Medications Lidocaine HCl 15 ml/ Al Hydrox /Mg Hydrox/Simethicone 30 ml/Sucralfate 1 gm 0 ml PO ONCE ONE Stop: 12/25/23 19:52 Last Admin: 12/25/23 20:08 Dose: 30 suspension Lidocaine HCl 15 ml/ Al Hydrox /Mg Hydrox/Simethicone 30 ml/Sucralfate 1 gm 0 ml PO ONCE ONE Stop: 12/26/23 03:03 Last Admin: 12/26/23 04:10 Dose: 55 suspension Lidocaine HCl 15 ml/ Al Hydrox /Mg Hydrox/Simethicone 30 ml/Sucralfate 1 gm 0 ml PO ONCE ONE Stop: 12/26/23 18:01 Last Admin: 12/26/23 17:58 Dose: 15 suspension Lidocaine HCl 15 ml/ Al Hydrox /Mg Hydrox/Simethicone 30 ml/Sucralfate 1 gm 0 ml PO ONCE ONE Stop: 12/27/23 00:35 Last Admin: 12/27/23 01:20 Dose: 1 suspension Lidocaine HCl 15 ml/ Al Hydrox /Mg Hydrox/Simethicone 30 ml/Sucralfate 1 gm 0 ml PO ONCE ONE Stop: 12/27/23 09:19 Last Admin: 12/27/23 09:35 Dose: 15 suspension Diltiazem HCl (Diltiazem 5 Mg/Ml Sdv 5 Ml) 20 mg IVP ONCE ONE Stop: 12/25/23 18:28 Last Admin: 12/25/23 18:38 Dose: 20 mg Diltiazem HCl (Diltiazem 5 Mg/Ml Sdv 5 Ml) 20 mg IVP ONCE ONE Stop: 12/25/23 19:47 Last Admin: 12/25/23 20:11 Dose: 20 mg Diltiazem HCl (Diltiazem 60 Mg Tablet) 30 mg PO Q6H [facility] Last Admin: 12/27/23 08:26 Dose: 30 mg Diltiazem HCl (Diltiazem 5 Mg/Ml Sdv 5 Ml) 10 mg IVP ONCE ONE Stop: 12/27/23 06:08 Last Admin: 12/27/23 06:18 Dose: 10 mg Diltiazem HCl (Diltiazem 30 Mg Tablet) 30 mg PO DAILY ONE Stop: 12/27/23 10:31 Last Admin: 12/27/23 11:06 Dose: 30 mg Furosemide (Furosemide 10 Mg/Ml Sdv 2ml) 20 mg IVP ONCE ONE Stop: 12/27/23 11:39 Last Admin: 12/27/23 11:51 Dose: 20 mg Sodium Chloride (Sodium Chloride 0.9%) 1,000 mls @ 999 mls/hr IV .Q1H1M ONE Stop: 12/25/23 19:53 Last Infusion: 12/25/23 20:07 Dose: Infused INSULIN REGULAR IN 0.9 % NACL (Myxredlin 100 Unit/100 Ml Bag) 100 unit in 100 mls @ 0 mls/hr IV PROTOCOL FRANCIA; Protocol Last Titration: 12/26/23 19:00 Dose: Infused Sodium Chloride (Sodium Chloride 0.9%) 1,000 mls @ 999 mls/hr IV .Q1H1M ONE Stop: 12/25/23 20:46 Last Infusion: 12/26/23 00:23 Dose: Infused Magnesium Sulfate (Magnesium Sulfate Premix) 2 gm in 50 mls @ 50 mls/hr IV PRN PRN PRN Reason: HYPOMAGNESIUMIA Lidocaine HCl 5 ml/ Potassium (Chloride) 105 mls @ 25 mls/hr IV PRN PRN PRN Reason: hypokalemia Potassium Phosphate 40 meq/ (Sodium Chloride) 108.5106 mls @ 27.273 mls/hr IV PRN PRN PRN Reason: hypophosphatemia Dextrose (D10w) 125 mls @ 750 mls/hr IV PRN PRN; Protocol PRN Reason: Adult DKA Hypoglycemia Nursing Protocol Dextrose (D10w) 250 mls @ 1,000 mls/hr IV PRN PRN; Protocol PRN Reason: Adult DKA Hypoglycemia Nursing Protocol INSULIN REGULAR IN 0.9 % NACL (Myxredlin 100 Unit/100 Ml Bag) 100 unit in 100 mls @ 0 mls/hr IV PROTOCOL FRNACIA; Protocol Last Titration: 12/26/23 21:24 Dose: Infused Potassium Chloride/Sodium Chloride (Sodium Chlor 0.9% + Kcl 40 Meq) 40 meq in 1,000 mls @ 100 mls/hr IV .Q10H FRANCIA Last Infusion: 12/26/23 19:00 Dose: Infused Sodium Bicarbonate 150 meq/ (Dextrose) 1,150 mls @ 100 mls/hr IV .[id number] FRANCIA Last Infusion: 12/26/23 19:00 Dose: Infused Potassium Chloride/Dextrose/Sod Cl (Dextrose 5%-Ns + Kcl 40) 40 meq in 1,000 mls @ 100 mls/hr IV .Q10H FRANCIA Last Admin: 12/26/23 03:24 Dose: Not Given Potassium Chloride/Dextrose/Sod Cl (Dextrose 5%-Ns 0.45% + Kcl 40) 1,000 mls @ 100 mls/hr IV .Q10H [facility] Last Infusion: 12/26/23 21:36 Dose: Infused Insulin Glargine (Insulin Glargine 100 Units/1 Ml) 20 unit SUBCUT BEDTIME [facility] Last Admin: 12/26/23 04:35 Dose: Not Given Insulin Glargine (Insulin Glargine 100 Units/1 Ml) 30 unit SUBCUT ONCE ONE Stop: 12/26/23 21:14 Last Admin: 12/26/23 21:59 Dose: 30 unit Insulin Glargine (Insulin Glargine 100 Units/1 Ml) 30 unit SUBCUT BEDTIME [facility] Insulin Human Lispro (Insulin Lispro 100 Unit/1 Ml) 0 unit SUBCUT TIDWM [facility]; Protocol Last Admin: 12/26/23 05:22 Dose: Not Given Insulin Human Regular (Insulin Regular-Human 100 Units/1 Ml) 14 unit 0.15 unit/kg (14 unit) IVP ONCE ONE Stop: 12/25/23 19:19 Last Admin: 12/25/23 19:23 Dose: 14 unit Metoprolol Tartrate (Metoprolol Tartrate 1 Mg/1 Ml Sdv 5 Ml) 5 mg IVP ONCE ONE Stop: 12/25/23 20:48 Last Admin: 12/25/23 21:01 Dose: 5 mg Metoprolol Tartrate (Metoprolol Tartrate 50 Mg Tablet) 50 mg PO ONCE ONE Stop: 12/25/23 21:19 Last Admin: 12/25/23 21:25 Dose: 50 mg Morphine Sulfate (Morphine Ir 15 Mg Tablet) 15 mg PO Q6H PRN PRN Reason: MODERATE PAIN Nitroglycerin (Nitroglycerin 0.4 Mg Sublingual Tablet) Confirm Administered Dose 0.4 mg .ROUTE .STK-MED ONE Stop: 12/27/23 09:21 Ondansetron HCl (Ondansetron 2 Mg/Ml Sdv 2 Ml) 4 mg IVP ONCE ONE Stop: 12/25/23 18:46 Last Admin: 12/25/23 18:48 Dose: 4 mg Ondansetron HCl (Ondansetron 2 Mg/Ml Sdv 2 Ml) 4 mg IVP ONCE ONE Stop: 12/25/23 19:52 Last Admin: 12/25/23 20:08 Dose: 4 mg Sodium Bicarbonate (Sodium Bicarbonate 8.4% 1 Meq/Ml 50ml Syr) Confirm Administered Dose 150 meq .ROUTE .STK-MED ONE Stop: 12/25/23 22:42 Last Admin: 12/26/23 00:06 Dose: Not Given Allergies No Known Allergies Allergy (Verified 11/25/23 20:08) Home Medications aspirin 81 mg tablet,delayed release (Adult Low Dose Aspirin) 81 mg PO DAILY 07/04/21 [History Confirmed 12/26/23] olopatadine 0.1 % eye drops (Pataday Twice Daily Relief) 1 drp ophthalmic (eye) BID #5 mL 07/07/21 [Rx Confirmed 12/26/23] blood pressure test kit-large #1 ea 07/31/21 [Rx Confirmed 12/26/23] pen needle, diabetic 33 gauge x /32 #100 ea 09/22/21 [Rx Confirmed 12/26/23] magnesium oxide 400 mg (241.3 mg magnesium) tablet (MagOx) 400 mg PO DAILY #1 tab 08/10/22 [Rx Confirmed 12/26/23] metoprolol tartrate 50 mg tablet 50 mg PO .three times day #1 tab 08/10/22 [Rx Confirmed 12/26/23] flash glucose sensor #2 ea 05/06/23 [Rx Confirmed 12/26/23] rosuvastatin 40 mg tablet See Rx Instructions .Route .COMPLEX #90 tabs 06/03/23 [Rx Confirmed 12/26/23] tramadol 50 mg tablet 50 mg PO Q6H PRN pain #60 tabs 08/19/23 [Rx Confirmed 12/26/23] zolpidem 12.5 mg tablet,extended release,multiphase (Ambien CR) 12.5 mg PO .at bedtime #30 tabs 10/26/23 [Rx Confirmed 12/26/23] nortriptyline 10 mg capsule 10 mg PO .at bedtime #90 caps 11/25/23 [Rx Confirmed 12/26/23] empagliflozin 25 mg tablet (Jardiance) 25 mg PO QAM #90 tabs 12/06/23 [Rx Confirmed 12/26/23] blood-glucose sensor (FreeStyle Sara 3 Sensor device) #1 kit 12/08/23 [Rx Confirmed 12/26/23] semaglutide 2 mg/dose (8 mg/3 mL) subcutaneous pen injector (Ozempic) See Rx Instructions .Route .COMPLEX #3 mL 12/08/23 [Rx Confirmed 12/26/23] metformin 500 mg tablet,extended release 24 hr 1,000 mg (2 x 500 mg) PO BID 30 days #120 tabs 12/20/23 [Rx Confirmed 12/26/23] glipizide 5 mg tablet 5 mg PO DAILY PRN diabetes #90 tabs 12/24/23 [Rx Confirmed 12/26/23] Discharge Plan Discharge Patient Disposition: Home Condition: Stable Prescriptions: No Action aspirin [Adult Low Dose Aspirin] 81 mg tablet,delayed release (DR/EC) 81 mg PO DAILY (DME) blood pressure test kit-large Kit See Rx Instructions .Route Qty: 1 0RF Rx Instructions: As directed (DME) pen needle, diabetic 33 gauge x 5/32 needle See Rx Instructions .ROUTE .MEDSUPPLY Qty: 100 0RF Rx Instructions: 1 daily olopatadine [Pataday Twice Daily Relief] 0.1 % drops 1 drp ophthalmic (eye) BID Qty: 5 0RF Rx Instructions: separate doses by at least 6-8 hours magnesium oxide [MagOx] 400 mg (241.3 mg magnesium) tablet 400 mg PO DAILY Qty: 1 0RF Rx Instructions: Cardiology [place] metoprolol tartrate 50 mg tablet 50 mg PO .three times day Qty: 1 0RF Rx Instructions: [place] tramadol 50 mg tablet 50 mg PO Q6H PRN (Reason: pain) Qty: 60 5RF nortriptyline 10 mg capsule 10 mg PO .at bedtime Qty: 90 0RF (DME) FreeStyle Sara 3 Sensor Kit See Rx Instructions .Route Qty: 2 5RF Rx Instructions: every 14 days rosuvastatin 40 mg tablet See Rx Instructions .ROUTE .COMPLEX Qty: 90 3RF Dose Instruction: TAKE ONE TABLET BY MOUTH EVERY DAY Rx Instructions: TAKE ONE TABLET BY MOUTH EVERY DAY zolpidem [Ambien CR] 12.5 mg tablet,ext release multiphase 12.5 mg PO .at bedtime Qty: 30 2RF Jardiance 25 mg tablet 25 mg PO QAM Qty: 90 0RF Rx Instructions: Started by cardiology in [place], [place] (DME) FreeStyle Sara 3 Sensor Device See Rx Instructions .ROUTE .COMPLEX Qty: 1 2RF Dose Instruction: USE DIRECTED Rx Instructions: USE DIRECTED Ozempic 2 mg/dose (8 mg/3 mL) pen injector See Rx Instructions .ROUTE .COMPLEX Qty: 3 0RF Dose Instruction: inject 2mg SUBCUTANEOUSLY EVERY 7 DAYS FOR 60 DAYS Rx Instructions: inject 2mg SUBCUTANEOUSLY EVERY 7 DAYS FOR 60 DAYS metformin 500 mg tablet extended release 24 hr 1,000 mg PO BID 30 Days Qty: 120 1RF glipizide 5 mg tablet 5 mg PO DAILY PRN (Reason: diabetes) Qty: 90 0RF Referrals: Jodi Mederos FNP-C [Primary Care Provider] - Patient Instructions: A-fib (Atrial Fibrillation) (DC), Diabetic Ketoacidosis (DC), Opioid Safety Transfer Attestations Time Spent in Transfer Care: greater than 30 min Quality Metrics Clinical Quality Measures [ No reported AMI, CVA or VTE this stay] Coding Level of Care Code Acute Code for Chg Fwd Diagnoses Diabetic keto-acidosis E13.10 Diabetes mellitus complication detail: without coma Diabetes mellitus type: other specified (including KERI) Atrial fibrillation with rapid ventricular response I48.91 Acute kidney injury N17.9 Neuropathic pain M79.2 Insomnia due to medical condition G47.01 Insomnia type: due to medical condition
--- NOTE | 2023-12-27 16:03 | PC.NURSE ---
patient signed D/C form, reported understanding that transfer is patient request. at bedside. out of facility with [facility] at this time
== END 2023-12-27 16:06 | disposition short-term general hospital (02) | DRG 638 ==
LOC: ER 20:34 → ICU 20:39
PROVIDERS: Admitting Provider Internal Medicine; Emergency Provider Internal Medicine; PCP Nurse Practitioner; Visit Provider Family Medicine
DX: E11.10 Type 2 diabetes mellitus with ketoacidosis without coma (principal); N17.9 Acute kidney failure, unspecified; E11.40 Type 2 diabetes mellitus with diabetic neuropathy, unspecified; I48.91 Unspecified atrial fibrillation; E78.2 Mixed hyperlipidemia; I10 Essential (primary) hypertension; G47.00 Insomnia, unspecified; E86.0 Dehydration; Z79.82 Long term (current) use of aspirin; Z79.84 Long term (current) use of oral hypoglycemic drugs; Z79.85 Long-term (current) use of injectable non-insulin antidiabetic drugs; Z95.1 Presence of aortocoronary bypass graft; Z11.52 Encounter for screening for COVID-19
CPT/HCPCS: 36415; 36416; 71045; 80048; 80053; 81001; 82009; 82607; 82962; 83036; 83605; 83690; 83735; 83880; 84100; 84484; 85025; 85378; 85610; 86140; 93005; 93306; 96365; 96366; 96367; 96372; 96375; 96376; 99285; J1650; J1815; J1940; J2405; J3490; J7030; J7070

== ENCOUNTER 2023-12-30 14:45 | Emergency (ER) | payer BC, SELFPAY ==
[2023-12-30 14:51] VITALS: BP 119/72; PULSE 78; TEMP 36.6; O2SAT 97; BMI 27.0
--- NOTE | 2023-12-30 15:05 | ECG_ITS ---
[facility] Test Date: 2023-12-30 Pat Name: Akbar Edmond Department: Room: Gender: Male [employer] Operator: : [id number] Requested By: Jair Sanchez Order Number: [id number] Laverne MD: Madhav Dawn M.D. Measurements Intervals [place] Rate: 77 P: 0 TX: 0 QRS: -52 QRSD: 139 T: 103 QT: 412 QTc: 467 Interpretive Statements ATRIAL FLUTTER INTRAVENTRICULAR CONDUCTION DELAY [130+ ms QRS DURATION] INFERIOR MYOCARDIAL INFARCTION , OF INDETERMINATE AGE [40+ ms Q WAVE AND/OR ST/T ABNORMALITY IN II/aVF] ANTEROSEPTAL MYOCARDIAL INFARCTION , OF INDETERMINATE AGE [40+ ms Q WAVE IN V1-V4] Compared to ECG 12/27/2023 13:31:25 Intraventricular conduction delay now present Left ventricular hypertrophy no longer present ST (T wave) deviation no longer present Myocardial infarct finding still present Electronically Signed On 12-30-2023 21:50:19 CDT by Madhav Dawn M.D. [id number]
[2023-12-30 15:10] LABS: Basophils # 0.1 10^3/uL (0.0-0.1); Basophils % 0.8 %; Eosinophils % 0.6 %; Hematocrit 45.7 % (37-53); Lymphocytes # 2.4 10^3/uL (0.8-4.8); Mean Corpuscular HGB Conc 33.7 g/dL (30-55); Mean Corpuscular Hemoglobin 29.1 pg (27-33); Mean Corpuscular Volume 86.2 fl (82-101); Mean Platelet Volume 10.3 fL (7.4-10.4); Monocytes # 0.4 10^3/uL (0.2-0.9); Monocytes % 6.3 %; Neutrophils # 3.66 10^3/uL (1.8-7.7); Nucleated Red Blood Cells % 0 %; Platelet Count 226 10^3/cmm (157-399); Red Cell Distribution Width 12.4 % (12.1-15.1); White Blood Count 6.53 10^3/uL (3.29-11.43)
--- NOTE | 2023-12-30 15:20 | W.ED.ABDPA2 ---
Documented by User: Jair Bhandari DO 01/10/24 06:22 HPI - Abdominal Pain General: Chief Complaint: Abdominal Pain Stated Complaint: abd pains Time Seen by Provider: 12/30/23 15:04 Source: patient Mode of arrival: ambulatory History of Present Illness: 58-year-old male presents to the emergency room with complaints of abdominal discomfort. He was recently hospitalized With DKA and atrial fibrillation with rapid ventricular response had some chest discomfort. His DKA and acute kidney injury were corrected here he then requested transfer and was transferred to [facility] 3 days ago he was discharged shortly after that returns to the emergency room today complaining of abdominal pain. He states he had called [facility] and the nurse practitioner received a advised him to come to the emergency room to get a CT. I had offered to see him in the outpatient clinic but told him the CT be scheduled as an outpatient and he did not want to wait a week. Has not had any nausea or vomiting has not had any hemoptysis. He has not had any dysuria urgency or frequency no hematuria. No fever sweats or chills. He has not had a bowel movement the last couple of days. He is on semaglutide as well as metformin. MD elicited complaint: abdominal pain Onset (ago): minute(s) Location: None Quality: cramping and aching Exacerbating factors: nothing Relieving factors: nothing Associated Symptoms: Reports GI cramping; Denies anorexia, belching, bloating, change in bowel habits, change in stool character, chills, coffee ground emesis, constipation, diarrhea, dyspepsia, dysuria, excessive flatus, fever(s), heartburn, hematochezia, hematuria, hematemesis, fecal incontinence, loose stools, melena, nausea, poor appetite, syncope and vomiting Review of Systems Const: Denies: fever(s) or chills Card: Denies: syncope GI: Reports: GI cramping; Denies: nausea, vomiting, hematemesis, coffee ground emesis, heartburn, diarrhea, constipation, bloating, belching, excessive flatus, fecal incontinence, change in bowel habits, change in stool character, hematochezia or melena : Denies: dysuria or hematuria [facility] ED PFSH: Medical History Osteomyelitis of foot, right, acute Diabetes mellitus with hyperglycemia, with long-term current use of insulin Hyperlipidemia, mixed Neuropathic pain Insomnia Hypertension Surgical History History of heart bypass surgery July 2022 History of knee surgery both Family History Other Cancer Dementia Diabetes Lung disease Neuropathic pain Denies family history of Chronic kidney disease (CKD) Hypertension Stroke Social History Smoking and tobacco/nicotine status: never used tobacco/nicotine Second hand smoke exposure: No Alcohol intake: current Alcohol intake frequency: holidays/special occasions only Substance/Drug Use: never Adopted: No Caregiver/support person: No Lives independently: Yes Household members: spouse Housing: House Number of children: 2 service: No Current occupational status: employed Current occupation: [employer] Current occupational exposures/hazards: No Pets and animals: Yes Do you think of yourself as: Straight/Heterosexual Current gender identity: Male Physical Exam Const: GENERAL APPEARANCE: cooperative and comfortable ORIENTATION/CONSCIOUSNESS: Yes awake, Yes oriented to person, Yes oriented to place and Yes oriented to time HENMT: COMMON NORMALS: normocephalic, atraumatic and hearing grossly normal bilaterally HEAD & SCALP: normocephalic and atraumatic Resp: COMMON NORMALS: normal respiratory effort, No retractions, No use of accessory muscles and clear to auscultation bilaterally AUSCULTATION: clear to auscultation bilaterally Cardio: COMMON NORMALS: regular rate, regular rhythm and No murmurs present (Cardio) RATE: regular rate RHYTHM: regular rhythm GI: COMMON NORMALS: Soft to palpation and No hepatosplenomegaly present AUSCULTATION: Yes normoactive bowel sounds PALPATION: Yes Soft to palpation, No Tenderness to palpation present (GI), No Guarding due to palpation present (GI) and Yes No hepatosplenomegaly present Extremity: COMMON NORMALS: normal to inspection, capillary refill normal, no clubbing, cyanosis or edema, no calf tenderness and no pedal edema Neuro: SENSORIUM/ORIENTATION: Yes oriented to person, Yes oriented to place and Yes oriented to time Skin: COMMON NORMALS: no rashes or lesions noted GENERAL SKIN EXAM: no rashes or lesions noted Course Vital Signs: Vital signs: Vital Signs Temperature 98 F 12/30/23 14:51 Pulse Rate 82 12/30/23 20:14 Respiratory Rate 16 12/30/23 20:14 Blood Pressure 143/83 12/30/23 20:14 Pulse Oximetry 100 12/30/23 20:14 Oxygen Delivery Me thod Room Air 12/30/23 18:04 MDM - Abdominal Pain Medical Decision Making Patient complained of abdominal pain recently had DKA did have positive serum ketones but not much of an anion gap glucose was normal I do not believe he has DKA at this point. His bicarb was only 19. His blood gases did not show acidosis. Urine did show more hematuria. CT did not show any ureteral lithiasis he does have some stones position in the kidney but they are not obstructing. There is no hydronephrosis or hydroureter. Do believe he may have a mild cystitis he also had a lot of retained urine on the CT we had him void and then catheterized him and he had nearly 600 mL of urine in the bladder. Discharge patient home with a Cipro 250 twice daily for 7 days follow-up with primary care doctor. Will refer to urology for retention start tamsulosin: 1 tablet twice daily. He is complaining of a lot of epigastric discomfort it may be worthwhile for him to hold the Ozempic and the metformin and consider other options if his stomach discomfort improves. Patient given second liter of fluid we will recheck a ketone. Signed out to Dr. Verdin who will follow-up with the ketone if resolves I think we can let the patient be discharged home. I have discussed the patient's case with the off going physician <Dr. Bhandari> and I have assumed care of the patient. We have discussed the current lab/radiographic results that have been resulted and the pending tests. The repeat ketone level was still positive I will provide him an additional liter of IV fluid and continue with Dr. Bhandari's recommendation for discharge and follow-up. Differential Diagnosis Likely abdominal pain, acute appendicitis, calculus of kidney, constipation, diverticulitis, gastroenteritis and pancreatitis Medical Records I reviewed the patient's medical records. Lab Data I reviewed the patient's lab results. 12/30/23 15:03 12/30/23 15:03 Labs/Radiology: Radiology Impressions Abdomen/Pelvis CT 12/30/23 16:18 IMPRESSION: 1. Nonobstructive 10 mm stone in the lower pole of the left kidney. No hydronephrosis. 2. Mild bilateral perinephric stranding, left greater than right is likely chronic although correlation for any evidence of superimposed UTI or pyelonephritis suggested. 3. Mild prostatomegaly. 4. The left perinephric stranding extends to the adjacent splenic flexure of the colon without definitive colitis/diverticulitis. Multiple colonic diverticuli. 5. 8 mm left lower lobe lung nodule, follow-up CT in 6-12 months recommended according to the Fleischner guidelines. 6. Multiple colonic diverticuli without clear-cut diverticulitis. Mild hazy density in the left upper quadrant is likely related to the observed perinephric stranding. Laboratory Results WBC 6.53 10^3/uL (3.29-11.43) 12/30/23 15:03 RBC 5.30 10^6/uL (3.85-5.65) 12/30/23 15:03 Hgb 15.40 g/dL (11.27-16.99) 12/30/23 15:03 Hct 45.7 % (37-53) 12/30/23 15:03 MCV 86.2 fl (82-101) 12/30/23 15:03 MCH 29.1 pg (27-33) 12/30/23 15:03 MCHC 33.7 g/dL (30-55) 12/30/23 15:03 RDW 12.4 % (12.1-15.1) 12/30/23 15:03 Plt Count 226 10^3/cmm (157-399) 12/30/23 15:03 MPV 10.3 fL (7.4-10.4) 12/30/23 15:03 Neut % (Auto) 56.0 % 12/30/23 15:03 Lymph % (Auto) 36.0 % 12/30/23 15:03 [place] % (Auto) 6.3 % 12/30/23 15:03 Eos % (Auto) 0.6 % 12/30/23 15:03 Baso % (Auto) 0.8 % 12/30/23 15:03 Neut # (Auto) 3.66 10^3/uL (1.8-7.7) 12/30/23 15:03 Lymph # (Auto) 2.4 10^3/uL (0.8-4.8) 12/30/23 15:03 [place] # (Auto) 0.4 10^3/uL (0.2-0.9) 12/30/23 15:03 Eos # (Auto) 0.0 10^3/uL (0.0-0.8) 12/30/23 15:03 Baso # (Auto) 0.1 10^3/uL (0.0-0.1) 12/30/23 15:03 Nucleated RBC % (auto) 0 % 12/30/23 15:03 Nucleated RBCs # 0.0 /100WBC 12/30/23 15:03 Specimen Type Arterial 12/30/23 15:45 Sample Site Radial, right 12/30/23 15:45 ABG pH 7.37 (7.35-7.45) 12/30/23 15:45 ABG pCO2 35.1 mmHg (35-45) 12/30/23 15:45 ABG pO2 79.5 mmHg (80.0-100.0) L 12/30/23 15:45 ABG PO2/FiO2 Ratio 0 12/30/23 15:45 ABG HCO3 20.4 mmol/L (22-26) L 12/30/23 15:45 ABG O2 Saturation 96.8 12/30/23 15:45 ABG Base Excess -4.1 mmol/L (-2.0-2.0) L 12/30/23 15:45 George Test Pos 12/30/23 15:45 A-a O2 Gradient 3.0 mmHg (5-10) L 12/30/23 15:45 Hematocrit 45.7 % (42-52) 12/30/23 15:45 Hgb O2 Saturation 94.7 % (95-100) L 12/30/23 15:45 Carboxyhemoglobin 1.4 %THgb (0.4-20.1) 12/30/23 15:45 Methemoglobin 0.8 % (0.4-1.5) 12/30/23 15:45 Total Hemoglobin 14.9 g/dL (14-18) 12/30/23 15:45 Sodium 136.0 mmol/L (131-143) 12/30/23 15:45 Potassium 3.9 mmol/L (3.5-5.0) 12/30/23 15:45 Glucose 185.0 mg/dL (70-115) H 12/30/23 15:45 Ionized Calcium 1.2 mmol/L (1.1-1.4) 12/30/23 15:45 O2 Delivery Device Room air 12/30/23 15:45 FiO2 21.0 % 12/30/23 15:45 Operations Forester ID Walci 12/30/23 15:45 Sodium 133 mmol/L (136-145) L 12/30/23 15:03 Potassium 4.1 mmol/L (3.5-5.1) 12/30/23 15:03 Chloride 98 mmol/L (98-107) 12/30/23 15:03 Carbon Dioxide 19 mmol/L (22-29) L 12/30/23 15:03 Anion Gap 20.1 (5-19) H 12/30/23 15:03 BUN 11 mg/dL (6-20) 12/30/23 15:03 Creatinine 0.8 mg/dL (0.7-1.2) 12/30/23 15:03 GFR Calculation 98.9 mL/min (90-130) 12/30/23 15:03 Glucose 178 mg/dL (65-115) H 12/30/23 15:03 Calculated Osmolality 280 mOsm/kg (285-295) L 12/30/23 15:03 Calcium 8.8 mg/dL (8.5-10.5) 12/30/23 15:03 Total Bilirubin 0.6 mg/dL (0.15-1.2) 12/30/23 15:03 AST 11 U/L (0-40) 12/30/23 15:03 ALT 11 U/L (0-41) 12/30/23 15:03 Alkaline Phosphatase 71 U/L (40-130) 12/30/23 15:03 Troponin T Baseline 23 ng/L (0-15) H 12/30/23 15:03 Troponin T 120 Minute 23.01 ng/L (0-15) H 12/30/23 17:02 Delta Troponin T 0.01 ABS# (0-10) 12/30/23 17:02 Total Protein 7.1 g/dL (6.6-8.7) 12/30/23 15:03 Albumin 3.6 g/dL (3.5-5.2) 12/30/23 15:03 Globulin 3.5 g/dL (1.3-4.6) 12/30/23 15:03 Lipase 13 U/L (13-60) 12/30/23 15:03 Urine Color Yellow (Yellow) 12/30/23 15:55 Urine Appearance Clear (CLEAR) 12/30/23 15:55 Urine pH 6 (5-7) 12/30/23 15:55 Ur Specific Botkins 1.020 (1.005-1.030) 12/30/23 15:55 Urine Protein 1+ (Negative) H 12/30/23 15:55 Urine Glucose (UA) 4+ (Normal) H 12/30/23 15:55 Urine Ketones 3+ (Negative) H 12/30/23 15:55 Urine Blood 2+ (Negative) H 12/30/23 15:55 Urine Nitrate Negative (Negative) 12/30/23 15:55 Urine Bilirubin Neg (Negative) 12/30/23 15:55 Urine Urobilinogen Norm mg/dL (Negative) 12/30/23 15:55 Ur Leukocyte Esterase Negative (Negative) 12/30/23 15:55 Urine RBC 10-15 /hpf (0-2) H 12/30/23 15:55 Urine WBC 5-10 /hpf (0-5) H 12/30/23 15:55 Ur Squamous Epith Cells None /hpf (0-5) 12/30/23 15:55 Amorphous Sediment Not Reportable 12/30/23 15:55 Urine Bacteria Trace /hpf (NONE) 12/30/23 15:55 Urine Mucus 1+ /hpf 12/30/23 15:55 Serum Ketones Positive (Negative) H 12/30/23 18:13 Discharge Plan Discharge Patient Disposition: Home Clinical Impression: Acute urinary retention, Cystitis, Diabetes mellitus Condition: Stable Prescriptions: New tamsulosin 0.4 mg capsule 0.4 mg PO BID Qty: 30 0RF ciprofloxacin HCl [Cipro] 250 mg tablet 250 mg PO BID Qty: 14 0RF No Action aspirin [Adult Low Dose Aspirin] 81 mg tablet,delayed release (DR/EC) 81 mg PO QAM (DME) blood pressure test kit-large Kit See Rx Instructions .Route Qty: 1 0RF Rx Instructions: As directed (DME) pen needle, diabetic 33 gauge x 5/32 needle See Rx Instructions .ROUTE .MEDSUPPLY Qty: 100 0RF Rx Instructions: 1 daily magnesium oxide [MagOx] 400 mg (241.3 mg magnesium) tablet 400 mg PO DAILY Qty: 1 0RF Rx Instructions: Cardiology [place] tramadol 50 mg tablet 50 mg PO Q6H PRN (Reason: pain) Qty: 60 5RF nortriptyline 10 mg capsule 10 mg PO .at bedtime Qty: 90 0RF (DME) FreeStyle Sara 3 Sensor Kit See Rx Instructions .Route Qty: 2 5RF Rx Instructions: every 14 days zolpidem [Ambien CR] 12.5 mg tablet,ext release multiphase 12.5 mg PO .at bedtime Qty: 30 2RF Jardiance 25 mg tablet 25 mg PO QAM Qty: 90 0RF Rx Instructions: Started by cardiology in [place] metformin 500 mg tablet extended release 24 hr 1,000 mg PO BID 30 Days Qty: 120 1RF glipizide 5 mg tablet 5 mg PO DAILY PRN (Reason: diabetes) Qty: 90 0RF (DME) FreeStyle Sara 3 Sensor Device See Rx Instructions .ROUTE .COMPLEX Qty: 1 2RF Dose Instruction: USE DIRECTED Rx Instructions: USE DIRECTED insulin lispro 100 unit/mL insulin pen See Rx Instructions .ROUTE .COMPLEX Rx Instructions: PER SLIDING SCALE 4 TIMES DAILY WITH MEALS AND AT BEDTIME. FOR BS 181-200=1UNIT, 201-250=2UNITS, 251-300=3UNITS, 301-350=4UNITS, 351-400=5UNITS, 401 OR GREATER=6UNITS. metoprolol succinate 100 mg tablet extended release 24 hr 100 mg PO BID Ozempic 2 mg/dose (8 mg/3 mL) pen injector 2 mg SUBCUT Q7D Rx Instructions: ON SATURDAY diltiazem HCl 240 mg capsule,extended release 24hr 240 mg PO DAILY pantoprazole 40 mg tablet,delayed release (DR/EC) 40 mg PO DAILY nitroglycerin 0.4 mg tablet, sublingual See Rx Instructions .ROUTE .COMPLEX Rx Instructions: DISSOLVE 1 TABLET UNDER THE TONGUE EVERY 5 MINUTES NEEDED FOR CHEST PAIN. DO NOT EXCEED A TOTAL OF 3 DOSES IN 15 MINUTES. metoclopramide HCl 10 mg tablet 10 mg PO QID Eliquis 5 mg Tablet 5 mg PO BID rosuvastatin 40 mg tablet 40 mg PO DAILY Discharge Orders: Discharge ED (Routine); Ordered 12/30/23 Ordered By: Jair Bhandari Referrals: Jodi Mederos, CAROLANN [Primary Care Provider] - Discharge Diet: Usual diet Discharge Activity: Resume usual activity Patient Instructions: Opioid Safety, Pain Management Activity Restrictions/Additional Instructions: Thank you for choosing [facility] for your healthcare needs today. Please realize this is an emergency room and that we are providing you with a medical screening exam and this may not be complete and all inclusive of all the testing and or work up that you may need to determine your ailment or severity of your illness. It is very important that you follow up as instructed or that you return to the Emergency Department should you have concerns or if your condition changes or worsens in any way. You were seen today complaints of abdominal pain. You were found to have urinary retention and a mild bladder infection your white count was normal. There is no sign of recurrent DKA although you did have some ketones. Monitor blood sugars closely recommended that you keep the Nunes leg bag in place until you see urology. Will start you on tamsulosin 1 1 p.o. twice daily to help decrease enlarged prostate causing urinary retention. Additionally put you on antibiotics for 1 week Cipro 250 mg twice daily. Check in with your primary care doctor sometime within the next week you may consider changing some of your medications metformin and the Ozempic can both continue to GI symptoms which may be an additional cause of your discomfort beyond the retained urine and cystitis. Coding Level of Care Code ED Costume Maker for Chg Fwd Documented by User: Ashok Verdin MD 12/30/23 19:03 HPI - Abdominal Pain General: Chief Complaint: Abdominal Pain Stated Complaint: abd pains Time Seen by Provider: 12/30/23 15:04 [facility] ED PFSH: Medical History Osteomyelitis of foot, right, acute Diabetes mellitus with hyperglycemia, with long-term current use of insulin Hyperlipidemia, mixed Neuropathic pain Insomnia Hypertension Surgical History History of heart bypass surgery July 2022 History of knee surgery both Family History Other Cancer Dementia Diabetes Lung disease Neuropathic pain Denies family history of Chronic kidney disease (CKD) Hypertension Stroke Social History Smoking and tobacco/nicotine status: never used tobacco/nicotine Second hand smoke exposure: No Alcohol intake: current Alcohol intake frequency: holidays/special occasions only Substance/Drug Use: never Adopted: No Caregiver/support person: No Lives independently: Yes Household members: spouse Housing: House Number of children: 2 service: No Current occupational status: employed Current occupation: [employer] Current occupational exposures/hazards: No Pets and animals: Yes Do you think of yourself as: Straight/Heterosexual Current gender identity: Male Course Vital Signs: Vital signs: Vital Signs Temperature 98 F 12/30/23 14:51 Pulse Rate 82 12/30/23 20:14 Respiratory Rate 16 12/30/23 20:14 Blood Pressure 143/83 12/30/23 20:14 Pulse Oximetry 100 12/30/23 20:14 Oxygen Delivery Me thod Room Air 12/30/23 18:04 MDM - Abdominal Pain Medical Decision Making Patient complained of abdominal pain recently had DKA did have positive serum ketones but not much of an anion gap glucose was normal I do not believe he has DKA at this point. His bicarb was only 19. His blood gases did not show acidosis. Urine did show more hematuria. CT did not show any ureteral lithiasis he does have some stones position in the kidney but they are not obstructing. There is no hydronephrosis or hydroureter. Do believe he may have a mild cystitis he also had a lot of retained urine on the CT we had him void and then catheterized him and he had nearly 600 mL of urine in the bladder. Discharge patient home with a Cipro 250 twice daily for 7 days follow-up with primary care doctor. Will refer to urology for retention start tamsulosin: 1 tablet twice daily. He is complaining of a lot of epigastric discomfort it may be worthwhile for him to hold the Ozempic and the metformin and consider other options if his stomach discomfort improves. I have discussed the patient's case with the off going physician <Dr. Bhandari> and I have assumed care of the patient. We have discussed the current lab/radiographic results that have been resulted and the pending tests. The repeat ketone level was still positive I will provide him an additional liter of IV fluid and continue with Dr. Bhandari's recommendation for discharge and follow-up. Lab Data 12/30/23 15:03 12/30/23 15:03 Labs/Radiology: Radiology Impressions Abdomen/Pelvis CT 12/30/23 16:18 IMPRESSION: 1. Nonobstructive 10 mm stone in the lower pole of the left kidney. No hydronephrosis. 2. Mild bilateral perinephric stranding, left greater than right is likely chronic although correlation for any evidence of superimposed UTI or pyelonephritis suggested. 3. Mild prostatomegaly. 4. The left perinephric stranding extends to the adjacent splenic flexure of the colon without definitive colitis/diverticulitis. Multiple colonic diverticuli. 5. 8 mm left lower lobe lung nodule, follow-up CT in 6-12 months recommended according to the Fleischner guidelines. 6. Multiple colonic diverticuli without clear-cut diverticulitis. Mild hazy density in the left upper quadrant is likely related to the observed perinephric stranding. Laboratory Results WBC 6.53 10^3/uL (3.29-11.43) 12/30/23 15:03 RBC 5.30 10^6/uL (3.85-5.65) 12/30/23 15:03 Hgb 15.40 g/dL (11.27-16.99) 12/30/23 15:03 Hct 45.7 % (37-53) 12/30/23 15:03 MCV 86.2 fl (82-101) 12/30/23 15:03 MCH 29.1 pg (27-33) 12/30/23 15:03 MCHC 33.7 g/dL (30-55) 12/30/23 15:03 RDW 12.4 % (12.1-15.1) 12/30/23 15:03 Plt Count 226 10^3/cmm (157-399) 12/30/23 15:03 MPV 10.3 fL (7.4-10.4) 12/30/23 15:03 Neut % (Auto) 56.0 % 12/30/23 15:03 Lymph % (Auto) 36.0 % 12/30/23 15:03 [place] % (Auto) 6.3 % 12/30/23 15:03 Eos % (Auto) 0.6 % 12/30/23 15:03 Baso % (Auto) 0.8 % 12/30/23 15:03 Neut # (Auto) 3.66 10^3/uL (1.8-7.7) 12/30/23 15:03 Lymph # (Auto) 2.4 10^3/uL (0.8-4.8) 12/30/23 15:03 [place] # (Auto) 0.4 10^3/uL (0.2-0.9) 12/30/23 15:03 Eos # (Auto) 0.0 10^3/uL (0.0-0.8) 12/30/23 15:03 Baso # (Auto) 0.1 10^3/uL (0.0-0.1) 12/30/23 15:03 Nucleated RBC % (auto) 0 % 12/30/23 15:03 Nucleated RBCs # 0.0 /100WBC 12/30/23 15:03 Specimen Type Arterial 12/30/23 15:45 Sample Site Radial, right 12/30/23 15:45 ABG pH 7.37 (7.35-7.45) 12/30/23 15:45 ABG pCO2 35.1 mmHg (35-45) 12/30/23 15:45 ABG pO2 79.5 mmHg (80.0-100.0) L 12/30/23 15:45 ABG PO2/FiO2 Ratio 0 12/30/23 15:45 ABG HCO3 20.4 mmol/L (22-26) L 12/30/23 15:45 ABG O2 Saturation 96.8 12/30/23 15:45 ABG Base Excess -4.1 mmol/L (-2.0-2.0) L 12/30/23 15:45 George Test Pos 12/30/23 15:45 A-a O2 Gradient 3.0 mmHg (5-10) L 12/30/23 15:45 Hematocrit 45.7 % (42-52) 12/30/23 15:45 Hgb O2 Saturation 94.7 % (95-100) L 12/30/23 15:45 Carboxyhemoglobin 1.4 %THgb (0.4-20.1) 12/30/23 15:45 Methemoglobin 0.8 % (0.4-1.5) 12/30/23 15:45 Total Hemoglobin 14.9 g/dL (14-18) 12/30/23 15:45 Sodium 136.0 mmol/L (131-143) 12/30/23 15:45 Potassium 3.9 mmol/L (3.5-5.0) 12/30/23 15:45 Glucose 185.0 mg/dL (70-115) H 12/30/23 15:45 Ionized Calcium 1.2 mmol/L (1.1-1.4) 12/30/23 15:45 O2 Delivery Device Room air 12/30/23 15:45 FiO2 21.0 % 12/30/23 15:45 Operations Forester ID [place] 12/30/23 15:45 Sodium 133 mmol/L (136-145) L 12/30/23 15:03 Potassium 4.1 mmol/L (3.5-5.1) 12/30/23 15:03 Chloride 98 mmol/L (98-107) 12/30/23 15:03 Carbon Dioxide 19 mmol/L (22-29) L 12/30/23 15:03 Anion Gap 20.1 (5-19) H 12/30/23 15:03 BUN 11 mg/dL (6-20) 12/30/23 15:03 Creatinine 0.8 mg/dL (0.7-1.2) 12/30/23 15:03 GFR Calculation 98.9 mL/min (90-130) 12/30/23 15:03 Glucose 178 mg/dL (65-115) H 12/30/23 15:03 Calculated Osmolality 280 mOsm/kg (285-295) L 12/30/23 15:03 Calcium 8.8 mg/dL (8.5-10.5) 12/30/23 15:03 Total Bilirubin 0.6 mg/dL (0.15-1.2) 12/30/23 15:03 AST 11 U/L (0-40) 12/30/23 15:03 ALT 11 U/L (0-41) 12/30/23 15:03 Alkaline Phosphatase 71 U/L (40-130) 12/30/23 15:03 Troponin T Baseline 23 ng/L (0-15) H 12/30/23 15:03 Troponin T 120 Minute 23.01 ng/L (0-15) H 12/30/23 17:02 Delta Troponin T 0.01 ABS# (0-10) 12/30/23 17:02 Total Protein 7.1 g/dL (6.6-8.7) 12/30/23 15:03 Albumin 3.6 g/dL (3.5-5.2) 12/30/23 15:03 Globulin 3.5 g/dL (1.3-4.6) 12/30/23 15:03 Lipase 13 U/L (13-60) 12/30/23 15:03 Urine Color Yellow (Yellow) 12/30/23 15:55 Urine Appearance Clear (CLEAR) 12/30/23 15:55 Urine pH 6 (5-7) 12/30/23 15:55 Ur Specific Botkins 1.020 (1.005-1.030) 12/30/23 15:55 Urine Protein 1+ (Negative) H 12/30/23 15:55 Urine Glucose (UA) 4+ (Normal) H 12/30/23 15:55 Urine Ketones 3+ (Negative) H 12/30/23 15:55 Urine Blood 2+ (Negative) H 12/30/23 15:55 Urine Nitrate Negative (Negative) 12/30/23 15:55 Urine Bilirubin Neg (Negative) 12/30/23 15:55 Urine Urobilinogen Norm mg/dL (Negative) 12/30/23 15:55 Ur Leukocyte Esterase Negative (Negative) 12/30/23 15:55 Urine RBC 10-15 /hpf (0-2) H 12/30/23 15:55 Urine WBC 5-10 /hpf (0-5) H 12/30/23 15:55 Ur Squamous Epith Cells None /hpf (0-5) 12/30/23 15:55 Amorphous Sediment Not Reportable 12/30/23 15:55 Urine Bacteria Trace /hpf (NONE) 12/30/23 15:55 Urine Mucus 1+ /hpf 12/30/23 15:55 Serum Ketones Positive (Negative) H 12/30/23 18:13 All radiology interpretation(s) finalized by discharge Discharge Plan Discharge Patient Disposition: Home Clinical Impression: Acute urinary retention, Cystitis, Diabetes mellitus Condition: Stable Prescriptions: New tamsulosin 0.4 mg capsule 0.4 mg PO BID Qty: 30 0RF ciprofloxacin HCl [Cipro] 250 mg tablet 250 mg PO BID Qty: 14 0RF No Action aspirin [Adult Low Dose Aspirin] 81 mg tablet,delayed release (DR/EC) 81 mg PO QAM (DME) blood pressure test kit-large Kit See Rx Instructions .Route Qty: 1 0RF Rx Instructions: As directed (DME) pen needle, diabetic 33 gauge x 5/32 needle See Rx Instructions .ROUTE .MEDSUPPLY Qty: 100 0RF Rx Instructions: 1 daily magnesium oxide [MagOx] 400 mg (241.3 mg magnesium) tablet 400 mg PO DAILY Qty: 1 0RF Rx Instructions: Cardiology [place] tramadol 50 mg tablet 50 mg PO Q6H PRN (Reason: pain) Qty: 60 5RF nortriptyline 10 mg capsule 10 mg PO .at bedtime Qty: 90 0RF (DME) FreeStyle Sara 3 Sensor Kit See Rx Instructions .Route Qty: 2 5RF Rx Instructions: every 14 days zolpidem [Ambien CR] 12.5 mg tablet,ext release multiphase 12.5 mg PO .at bedtime Qty: 30 2RF Jardiance 25 mg tablet 25 mg PO QAM Qty: 90 0RF Rx Instructions: Started by cardiology in [place], [place] metformin 500 mg tablet extended release 24 hr 1,000 mg PO BID 30 Days Qty: 120 1RF glipizide 5 mg tablet 5 mg PO DAILY PRN (Reason: diabetes) Qty: 90 0RF (DME) FreeStyle Sara 3 Sensor Device See Rx Instructions .ROUTE .COMPLEX Qty: 1 2RF Dose Instruction: USE DIRECTED Rx Instructions: USE DIRECTED insulin lispro 100 unit/mL insulin pen See Rx Instructions .ROUTE .COMPLEX Rx Instructions: PER SLIDING SCALE 4 TIMES DAILY WITH MEALS AND AT BEDTIME. FOR BS 181-200=1UNIT, 201-250=2UNITS, 251-300=3UNITS, 301-350=4UNITS, 351-400=5UNITS, 401 OR GREATER=6UNITS. metoprolol succinate 100 mg tablet extended release 24 hr 100 mg PO BID Ozempic 2 mg/dose (8 mg/3 mL) pen injector 2 mg SUBCUT Q7D Rx Instructions: ON SATURDAY diltiazem HCl 240 mg capsule,extended release 24hr 240 mg PO DAILY pantoprazole 40 mg tablet,delayed release (DR/EC) 40 mg PO DAILY nitroglycerin 0.4 mg tablet, sublingual See Rx Instructions .ROUTE .COMPLEX Rx Instructions: DISSOLVE 1 TABLET UNDER THE TONGUE EVERY 5 MINUTES NEEDED FOR CHEST PAIN. DO NOT EXCEED A TOTAL OF 3 DOSES IN 15 MINUTES. metoclopramide HCl 10 mg tablet 10 mg PO QID Eliquis 5 mg Tablet 5 mg PO BID rosuvastatin 40 mg tablet 40 mg PO DAILY Discharge Orders: Discharge ED (Routine); Ordered 12/30/23 Ordered By: Jair Bhandari Referrals: Jodi Mederos, CAROLANN [Primary Care Provider] - Discharge Diet: Usual diet Discharge Activity: Resume usual activity Patient Instructions: Opioid Safety, Pain Management Activity Restrictions/Additional Instructions: Thank you for choosing [facility] for your healthcare needs today. Please realize this is an emergency room and that we are providing you with a medical screening exam and this may not be complete and all inclusive of all the testing and or work up that you may need to determine your ailment or severity of your illness. It is very important that you follow up as instructed or that you return to the Emergency Department should you have concerns or if your condition changes or worsens in any way. You were seen today complaints of abdominal pain. You were found to have urinary retention and a mild bladder infection your white count was normal. There is no sign of recurrent DKA although you did have some ketones. Monitor blood sugars closely recommended that you keep the Nunes leg bag in place until you see urology. Will start you on tamsulosin 1 1 p.o. twice daily to help decrease enlarged prostate causing urinary retention. Additionally put you on antibiotics for 1 week Cipro 250 mg twice daily. Check in with your primary care doctor sometime within the next week you may consider changing some of your medications metformin and the Ozempic can both continue to GI symptoms which may be an additional cause of your discomfort beyond the retained urine and cystitis. Coding Level of Care Code ED Costume Maker for Michael Moreira
[2023-12-30 15:30] LABS: Alanine Aminotransferase 11 U/L (0-41); Albumin Level 3.6 g/dL (3.5-5.2); Alkaline Phosphatase 71 U/L (40-130); Anion Gap 20.1 (5-19); Aspartate Amino Transferase 11 U/L (0-40); Blood Urea Nitrogen 11 mg/dL (6-20); Calcium 8.8 mg/dL (8.5-10.5); Carbon Dioxide 19 mmol/L (22-29); Chloride 98 mmol/L (98-107); Creatinine Clr Calc Pharmacy 119.7203; Globulin 3.5 g/dL (1.3-4.6); Glomerular Filtration Rate 98.9 mL/min (90-130); Glucose 178 mg/dL (65-115); Lipase 13 U/L (13-60); Osmolality Calculated 280 mOsm/kg (285-295); Potassium 4.1 mmol/L (3.5-5.1); Sodium 133 mmol/L (136-145); Total Bilirubin 0.6 mg/dL (0.15-1.2); Total Protein 7.1 g/dL (6.6-8.7)
[2023-12-30 15:36] LABS: Troponin(5th) Baseline 23 ng/L (0-15)
[2023-12-30 15:39] LABS: Ketone (Acetest) Serum Positive (Negative)
[2023-12-30 15:56] LABS: ABG PCO2 35.1 mmHg (35-45); ABG PH Result 7.37 (7.35-7.45); Arterial Blood Gas Hematocrit 45.7 % (42-52); Base Excess ABG -4.1 mmol/L (-2.0-2.0); Blood Gas Allen Test Pos; Blood Gas Operator Identificat WALCI; Blood Gas Sample Site Radial, right; Blood Gas Sample Type Arterial; Carboxyhemoglobin 1.4 %THgb (0.4-20.1); HCO3 ABG 20.4 mmol/L (22-26); HGB O2 Sat 94.7 % (95-100); Ionized Calcium Level - ABG 1.2 mmol/L (1.1-1.4); Methemoglobin 0.8 % (0.4-1.5); Oxygen Device ROOM AIR; Oxygen Saturation ABG 96.8; PO2 ABG 79.5 mmHg (80.0-100.0); PO2 FiO2 Ratio Arterial Blood 0; Potassium Level - ABG 3.9 mmol/L (3.5-5.0); Total Hemoglobin 14.9 g/dL (14-18)
[2023-12-30 15:58] VITALS: BP 127/80; RESP 18; O2SAT 96
[2023-12-30 16:03] VITALS: BP 147/91; PULSE 82; O2SAT 96
[2023-12-30 16:15] LABS: Bilirubin Urine Neg (Negative); Blood Urine 2+ (Negative); Glucose Urine UA 4+ (Normal); Ketones Urine 3+ (Negative); Leukocyte Esterase Urine Negative (Negative); Nitrate Urine Negative (Negative); Protein Urine 1+ (Negative); Urine Appearance Clear (CLEAR); Urine Color Yellow (Yellow); Urobilinogen Urine Norm (Negative); pH Urine 6 (5-7)
[2023-12-30 16:16] LABS: Add Urine Culture? Yes; Add Urine Microscopic? YES; Bacteria Urine TRACE /hpf; Mucus Urine 1+ /hpf
--- NOTE | 2023-12-30 16:18 | CTR_ITS ---
PROCEDURE INFORMATION: Exam: CT Abdomen And Pelvis Without Contrast Exam date and time: 12/30/2023 4:25 PM Age: 58 years old Clinical indication: Other: Hematuria TECHNIQUE: Imaging protocol: Computed tomography of the abdomen and pelvis without contrast. Radiation optimization: All CT scans at this facility use at least one of these dose optimization techniques: automated exposure control; mA and/or kV adjustment per patient size (includes targeted exams where dose is matched to clinical indication); or iterative reconstruction. COMPARISON: CR XR KUB [id number] 04/04/2018 3:59 AM RADIATION DOSE METRICS: Total DLP (mGy-cm): 793.93 FINDINGS: Lungs: 8 mm nodule in the left lower lobe (series 3, image 36). Liver: Small calcified hepatic granuloma. 8 mm lesion in the liver (series 3, image 34) is too small to further characterize although statistically likely due to benign etiology. Focal fatty deposition along the falciform fissure. Gallbladder and bile ducts: Punctate gallstone. No biliary dilatation. Pancreas: Normal. No ductal dilation. Spleen: Normal. No splenomegaly. Adrenal glands: Normal. No mass. Kidneys and ureters: Mild bilateral perinephric stranding. 10 mm lower pole stone in the left kidney corresponding to 04/04/2018 radiograph. No hydronephrosis. No hydroureter. Stomach and bowel: Multiple diverticula in the sigmoid and descending colon as well as the hepatic flexure. Mild hazy density is interposed between the splenic flexure and adjacent upper pole of the left kidney (series 5 image 79). Remote nondisplaced fracture of the left lateral 9th rib. Appendix: Appendix is unremarkable. Intraperitoneal space: Unremarkable. No free air. No significant fluid collection. Vasculature: Moderate aortic and iliac atherosclerotic calcification. Lymph nodes: Unremarkable. No enlarged lymph nodes. Urinary bladder: Unremarkable as visualized. Reproductive: Prostate is borderline enlarged. Bones/joints: Mild lower thoracic and lumbar spondylosis. Median sternotomy wires are noted. Soft tissues: Mild nonspecific hazy stranding and small amount of air in the right lower quadrant anterior abdominal wall subcutaneous tissues (series 3, image 139), likely sequelae of recent therapeutic injections. CT/CT kidney stone [id number] IMPRESSION: 1. Nonobstructive 10 mm stone in the lower pole of the left kidney. No hydronephrosis. 2. Mild bilateral perinephric stranding, left greater than right is likely chronic although correlation for any evidence of superimposed UTI or pyelonephritis suggested. 3. Mild prostatomegaly. 4. The left perinephric stranding extends to the adjacent splenic flexure of the colon without definitive colitis/diverticulitis. Multiple colonic diverticuli. 5. 8 mm left lower lobe lung nodule, follow-up CT in 6-12 months recommended according to the Fleischner guidelines. 6. Multiple colonic diverticuli without clear-cut diverticulitis. Mild hazy density in the left upper quadrant is likely related to the observed perinephric stranding.
[2023-12-30] MEDS: sodium chloride 0.9% 1,000 ML 999 ML IV ×2 (16:40→18:48)
--- NOTE | 2023-12-30 17:05 | ECG_ITS ---
[facility] Test Date: 2023-12-30 Pat Name: Akbar Edmond Department: Room: Gender: Male Backup Operator: : 1965 Requested By: Jair Sanchez Order Number: [id number] Laverne MD: Madhav Dawn M.D. Measurements Intervals [place] Rate: 78 P: 0 MD: 0 QRS: -56 QRSD: 137 T: 112 QT: 412 QTc: 470 Interpretive Statements ATRIAL FLUTTER INTRAVENTRICULAR CONDUCTION DELAY [130+ ms QRS DURATION] INFERIOR MYOCARDIAL INFARCTION , POSSIBLY ACUTE [40+ ms Q WAVE AND/OR ST/T ABNORMALITY IN II/aVF] Compared to ECG 12/30/2023 15:11:43 No significant changes Electronically Signed On 12-30-2023 21:52:45 CDT by Madhav Dawn M.D. [id number]
[2023-12-30 17:39] LABS: Troponin 5 2HR 23.01 ng/L (0-15); Troponin 5 2HR Delta 0.01 ABS# (0-10)
[2023-12-30 17:40] VITALS: BP 128/87; RESP 18; O2SAT 97
[2023-12-30 18:04] VITALS: BP 131/79; RESP 18; O2SAT 96
[2023-12-30 18:35] LABS: Ketone (Acetest) Serum Positive (Negative)
[2023-12-30 20:14] VITALS: BP 143/83; PULSE 82; RESP 16; O2SAT 100
--- NOTE | 2023-12-31 10:03 | DCPLANNER ---
Referral sent to [facility] per patient's request.
== END 2023-12-30 20:14 | disposition home or self-care (01) ==
PROVIDERS: Emergency Medicine; Family Medicine; Emergency Provider Internal Medicine; PCP Nurse Practitioner
DX: N30.90 Cystitis, unspecified without hematuria (principal); R33.9 Retention of urine, unspecified; E11.9 Type 2 diabetes mellitus without complications; Z79.82 Long term (current) use of aspirin; Z79.84 Long term (current) use of oral hypoglycemic drugs; Z79.4 Long term (current) use of insulin; Z79.01 Long term (current) use of anticoagulants; E78.2 Mixed hyperlipidemia; I10 Essential (primary) hypertension
CPT/HCPCS: 36415; 36600; 51702; 51798; 74176; 80051; 80053; 81001; 82009; 82330; 82805; 83690; 84484; 85025; 87086; 93005; 96360; 96361; 99285; J7030

== ENCOUNTER 2024-01-02 15:39 | Emergency (ER) | payer BC, SELFPAY ==
[2024-01-02 15:45] VITALS: BP 126/83; PULSE 155; RESP 20; TEMP 36.4; O2SAT 100
--- NOTE | 2024-01-02 15:46 | ECG_ITS ---
[facility] Test Date: 2024-01-02 Pat Name: Akbar Edmond Department: Room: Gender: Male Recreation Technician: : 1965 Requested By: Graham Go Order Number: [id number] Laverne MD: Madhav Dawn M.D. Measurements Intervals [place] Rate: 137 P: 259 ND: 156 QRS: -39 QRSD: 92 T: 166 QT: 298 QTc: 450 Interpretive Statements ECTOPIC ATRIAL TACHYCARDIA LEFT AXIS DEVIATION [QRS AXIS < -30] POSSIBLE ANTERIOR MYOCARDIAL INFARCTION , OF INDETERMINATE AGE [30 ms Q WAVE IN V3/V4, OR R < 0.2 mV IN V4] MODERATE T-WAVE ABNORMALITY, CONSIDER LATERAL ISCHEMIA [-0.1+ mV T-WAVE IN I/aVL/V5/V6] Compared to ECG 12/30/2023 17:13:09 Left-axis deviation now present Possible ischemia now present Atrial flutter no longer present Intraventricular conduction delay no longer present Myocardial infarct finding still present Electronically Signed On 01-02-2024 16:13:05 CDT by Madhav Dawn M.D. [id number]
--- NOTE | 2024-01-02 16:02 | ED_ITS ---
HPI - Male Genitourinary 2 General: Chief complaint: Urogenital-Male Stated complaint: bladder trouble Time Seen by Provider: 01/02/24 15:55 Source: patient Mode of arrival: ambulatory Limitations: no limitations History of Present Illness: 58-year-old male seen here 3 days ago di agnosed with cystitis along with some urinary tension he had a Nunes placed in he came back as he is wanting the Nunes removed. He does have a history of atrial fibs he is in A-fib here with RVR heart rates in the 140s he is asymptomatic he states he has no chest pain no shortness of breath does not feel any palpitations. He has been taking his meds he is on Eliquis. Associated symptoms: Deny dysuria, nausea or vomiting Review of Systems 2 Const: Denies: fever(s), chills, body aches or change in appetite Eyes: Denies: blurry vision or eye discomfort ENMT: Denies: throat pain or dental pain Card: Denies: chest pain Resp: Denies: dyspnea GI: Denies: abdominal pain, nausea, vomiting or diarrhea : Denies: dysuria Musc: Denies: neck pain or back pain Skin/Breast: Denies: rash Neuro: Denies: headache(s) PFSH ED 2 PFSH: Medical History Osteomyelitis of foot, right, acute Diabetes mellitus with hyperglycemia, with long-term current use of insulin Hyperlipidemia, mixed Neuropathic pain Insomnia Hypertension Surgical History History of heart bypass surgery July 2022 History of knee surgery both Family History Other Cancer Dementia Diabetes Lung disease Neuropathic pain Denies family history of Chronic kidney disease (CKD) Hypertension Stroke Social History Smoking and tobacco/nicotine status: never used tobacco/nicotine Second hand smoke exposure: No Alcohol intake: current Alcohol intake frequency: holidays/special occasions only Substance/Drug Use: never Adopted: No Caregiver/support person: No Lives independently: Yes Household members: spouse Housing: House Number of children: 2 service: No Current occupational status: employed Current occupation: [employer] Current occupational exposures/hazards: No Pets and animals: Yes Do you think of yourself as: Straight/Heterosexual Current gender identity: Male Physical Exam 2 Const: COMMON NORMALS: no acute distress, patient oriented x3 and healthy appearing HENMT: COMMON NORMALS: normocephalic and atraumatic HEAD & SCALP: n ormocephalic and atraumatic Neck/C-Spine: COMMON NORMALS: full ROM and supple Chest: COMMONS NORMALS: normal inspection of the chest Resp: COMMON NORMALS: normal respiratory effort Cardio: COMMON NORMALS: No murmurs present (Cardio) RATE: tachycardic R HYTHM: abnormal rhythm irregularly irregular Extremity: COMMON NORMALS: normal to inspection and full ROM Neuro: COMMON NORMALS: patient oriented x3, moves all extremities and no focal motor deficits Psych: COMMON NORMALS: mental status grossly normal, Normal thought process present and cooperative THOUGHT PROCESS: Normal thought process present Skin: COMMON NORMALS: no rashes or lesions noted and no wounds GENERAL SKIN EXAM: no rashes or lesions noted Course 2 Vital Signs: Vital signs: Vital Signs Temperature 97.6 F 01/02/24 15:45 Pulse Rate 85 01/02/24 16:52 Respiratory Rate 20 H 01/02/24 16:52 Blood Pressure 129/74 01/02/24 16:52 Pulse Oximetry 95 01/02/24 16:52 Oxygen Delivery Me thod Room Air 01/02/24 15:45 MDM - Male Medical Decision Making Patient presents here with A-fib with RVR he also came in for Nunes removal did remove his Nunes he is well-appearing here blood works normal his heart rates now in the 80s he has known history of A-fib he is stable for discharge follow- up with urology as he is scheduled in 2 weeks return if worsening. Medical Records I reviewed the patient's medical records. Lab Data I reviewed the patient's lab results. 01/02/24 16:03 01/02/24 16:03 Laboratory Results WBC 7.71 10^3/uL (3.29-11.43) 01/02/24 16:03 RBC 4.77 10^6/uL (3.85-5.65) 01/02/24 16:03 Hgb 13.90 g/dL (11.27-16.99) 01/02/24 16:03 Hct 41.4 % (37-53) 01/02/24 16:03 MCV 86.8 fl (82-101) 01/02/24 16:03 MCH 29.1 pg (27-33) 01/02/24 16:03 MCHC 33.6 g/dL (30-55) 01/02/24 16:03 RDW 13.0 % (12.1-15.1) 01/02/24 16:03 Plt Count 195 10^3/cmm (157-399) 01/02/24 16:03 MPV 11.0 fL (7.4-10.4) H 01/02/24 16:03 Neut % (Auto) 73.9 % 01/02/24 16:03 Lymph % (Auto) 17.4 % 01/02/24 16:03 Calloway % (Auto) 7.3 % 01/02/24 16:03 Eos % (Auto) 0.6 % 01/02/24 16:03 Baso % (Auto) 0.5 % 01/02/24 16:03 Neut # (Auto) 5.70 10^3/uL (1.8-7.7) 01/02/24 16:03 Lymph # (Auto) 1.3 10^3/uL (0.8-4.8) 01/02/24 16:03 Calloway # (Auto) 0.6 10^3/uL (0.2-0.9) 01/02/24 16:03 Eos # (Auto) 0.1 10^3/uL (0.0-0.8) 01/02/24 16:03 Baso # (Auto) 0.0 10^3/uL (0.0-0.1) 01/02/24 16:03 Nucleated RBC % (auto) 0 % 01/02/24 16:03 Nucleated RBCs # 0.0 /100WBC 01/02/24 16:03 Sodium 138 mmol/L (136-145) 01/02/24 16:03 Potassium 4.0 mmol/L (3.5-5.1) 01/02/24 16:03 Chloride 100 mmol/L (98-107) 01/02/24 16:03 Carbon Dioxide 26 mmol/L (22-29) 01/02/24 16:03 Anion Gap 16.0 (5-19) 01/02/24 16:03 BUN 15 mg/dL (6-20) 01/02/24 16:03 Creatinine 0.8 mg/dL (0.7-1.2) 01/02/24 16:03 GFR Calculation 98.9 mL/min (90-130) 01/02/24 16:03 Glucose 283 mg/dL (65-115) H 01/02/24 16:03 Calculated Osmolality 297 mOsm/kg (285-295) H 01/02/24 16:03 Calcium 9.1 mg/dL (8.5-10.5) 01/02/24 16:03 Total Bilirubin 0.4 mg/dL (0.15-1.2) 01/02/24 16:03 AST 18 U/L (0-40) 01/02/24 16:03 ALT 22 U/L (0-41) 01/02/24 16:03 Alkaline Phosphatase 108 U/L (40-130) 01/02/24 16:03 Total Protein 7.0 g/dL (6.6-8.7) 01/02/24 16:03 Albumin 3.9 g/dL (3.5-5.2) 01/02/24 16:03 Globulin 3.1 g/dL (1.3-4.6) 01/02/24 16:03 No radiology studies performed this visit EKG Data EKG 1: I personally reviewed and interpreted this EKG as follows: EKG Data: 01/02/24 EKG interpretation time: 15:46 Interpretation: afib rvr hr [address] or t wave abnormalities qrs 92 qtc 378 Discharge Plan Discharge Patient Disposition: Home Clinical Impression: Atrial fibrillation with RVR Condition: Stable Prescriptions: No Action aspirin [Adult Low Dose Aspirin] 81 mg tablet,delayed release (DR/EC) 81 mg PO QAM (DME) blood pressure test kit-large Kit See Rx Instructions .Route Qty: 1 0RF Rx Instructions: As directed (DME) pen needle, diabetic 33 gauge x 5/32 needle See Rx Instructions .ROUTE .MEDSUPPLY Qty: 100 0RF Rx Instructions: 1 daily magnesium oxide [MagOx] 400 mg (241.3 mg magnesium) tablet 400 mg PO DAILY Qty: 1 0RF Rx Instructions: Cardiology [place], [place] tramadol 50 mg tablet 50 mg PO Q6H PRN (Reason: pain) Qty: 60 5RF nortriptyline 10 mg capsule 10 mg PO .at bedtime Qty: 90 0RF (DME) FreeStyle Sara 3 Sensor Kit See Rx Instructions .Route Qty: 2 5RF Rx Instructions: every 14 days zolpidem [Ambien CR] 12.5 mg tablet,ext release multiphase 12.5 mg PO .at bedtime Qty: 30 2RF Jardiance 25 mg tablet 25 mg PO QAM Qty: 90 0RF Rx Instructions: Started by cardiology in [place], [place] metformin 500 mg tablet extended release 24 hr 1,000 mg PO BID 30 Days Qty: 120 1RF glipizide 5 mg tablet 5 mg PO DAILY PRN (Reason: diabetes) Qty: 90 0RF (DME) FreeStyle Sara 3 Sensor Device See Rx Instructions .ROUTE .COMPLEX Qty: 1 2RF Dose Instruction: USE DIRECTED Rx Instructions: USE DIRECTED insulin lispro 100 unit/mL insulin pen See Rx Instructions .ROUTE .COMPLEX Rx Instructions: PER SLIDING SCALE 4 TIMES DAILY WITH MEALS AND AT BEDTIME. FOR BS 181- 200=1UNIT, 201-250=2UNITS, 251-300=3UNITS, 301-350=4UNITS, 351-400=5UNITS, 401 OR GREATER=6UNITS. metoprolol succinate 100 mg tablet extended release 24 hr 100 mg PO BID Ozempic 2 mg/dose (8 mg/3 mL) pen injector 2 mg SUBCUT Q7D Rx Instructions: ON SATURDAY diltiazem HCl 240 mg capsule,extended release 24hr 240 mg PO DAILY pantoprazole 40 mg tablet,delayed release (DR/EC) 40 mg PO DAILY nitroglycerin 0.4 mg tablet, sublingual See Rx Instructions .ROUTE .COMPLEX Rx Instructions: DISSOLVE 1 TABLET UNDER THE TONGUE EVERY 5 MINUTES NEEDED FOR CHEST PAIN. DO NOT EXCEED A TOTAL OF 3 DOSES IN 15 MINUTES. metoclopramide HCl 10 mg tablet 10 mg PO QID Eliquis 5 mg Tablet 5 mg PO BID rosuvastatin 40 mg tablet 40 mg PO DAILY tamsulosin 0.4 mg capsule 0.4 mg PO BID Qty: 30 0RF ciprofloxacin HCl [Cipro] 250 mg tablet 250 mg PO BID Qty: 14 0RF Discharge Orders: Discharge ED (Routine); Ordered 01/02/24 Ordered By: Graham Go Referrals: Jodi Mederos, EYE CARE PROFESSIONAL-C [Primary Care Provider] - 4-7 days Discharge Diet: Advance as tolerated Discharge Activity: Resume usual activity Patient Instructions: Atrial Flutter (ED), A-fib (Atrial Fibrillation) (ED) Coding Level of Care Code ED Power Technician for Michael Moreira
[2024-01-02 16:12] LABS: Basophils % 0.5 %; Eosinophils # 0.1 10^3/uL (0.0-0.8); Eosinophils % 0.6 %; Hematocrit 41.4 % (37-53); Lymphocytes # 1.3 10^3/uL (0.8-4.8); Lymphocytes % 17.4 %; Mean Corpuscular HGB Conc 33.6 g/dL (30-55); Mean Corpuscular Hemoglobin 29.1 pg (27-33); Mean Corpuscular Volume 86.8 fl (82-101); Monocytes # 0.6 10^3/uL (0.2-0.9); Monocytes % 7.3 %; Neutrophils % 73.9 %; Nucleated Red Blood Cells % 0 %; Platelet Count 195 10^3/cmm (157-399); Red Blood Count 4.77 10^6/uL (3.85-5.65); White Blood Count 7.71 10^3/uL (3.29-11.43)
[2024-01-02] MEDS: sodium chloride 0.9% 1,000 ML 999 ML IV (16:19)
[2024-01-02] MEDS: dilTIAZem 5 mg/mL SDV 5 mL 20 MG IVP (16:21)
[2024-01-02] MEDS: metoprolol tartrate 50 mg Tablet PO (16:35)
[2024-01-02 16:48] LABS: Alanine Aminotransferase 22 U/L (0-41); Albumin Level 3.9 g/dL (3.5-5.2); Alkaline Phosphatase 108 U/L (40-130); Aspartate Amino Transferase 18 U/L (0-40); Blood Urea Nitrogen 15 mg/dL (6-20); Calcium 9.1 mg/dL (8.5-10.5); Carbon Dioxide 26 mmol/L (22-29); Chloride 100 mmol/L (98-107); Creatinine Clr Calc Pharmacy 119.7203; Globulin 3.1 g/dL (1.3-4.6); Glomerular Filtration Rate 98.9 mL/min (90-130); Glucose 283 mg/dL (65-115); Osmolality Calculated 297 mOsm/kg (285-295); Sodium 138 mmol/L (136-145); Total Bilirubin 0.4 mg/dL (0.15-1.2)
[2024-01-02 16:52] VITALS: BP 129/74; PULSE 85; RESP 20; O2SAT 95
[2024-01-02 17:15] VITALS: BP 143/85; PULSE 86; RESP 14; O2SAT 97
== END 2024-01-02 17:20 | disposition home or self-care (01) ==
PROVIDERS: Emergency Provider Emergency Medicine; PCP Nurse Practitioner
DX: I48.20 Chronic atrial fibrillation, unspecified (principal); Z79.82 Long term (current) use of aspirin; Z79.84 Long term (current) use of oral hypoglycemic drugs; Z79.4 Long term (current) use of insulin; Z79.01 Long term (current) use of anticoagulants; E11.9 Type 2 diabetes mellitus without complications; E78.2 Mixed hyperlipidemia; I10 Essential (primary) hypertension
CPT/HCPCS: 80053; 85025; 93005; 96374; 99284; J3490; J7030

== ENCOUNTER 2024-03-05 10:02 | Outpatient (CLI) | payer BC, SELFPAY ==
[2024-03-05 10:55] LABS: Alanine Aminotransferase 28 U/L (0-41); Albumin Level 3.9 g/dL (3.5-5.2); Alkaline Phosphatase 145 U/L (40-130); Anion Gap 14.6 (5-19); Aspartate Amino Transferase 26 U/L (0-40); Blood Urea Nitrogen 28 mg/dL (6-20); Calcium 8.7 mg/dL (8.5-10.5); Carbon Dioxide 25 mmol/L (22-29); Chloride 101 mmol/L (98-107); Chol HDL Ratio 2.63 mg/dL (1.0-5.00); Cholesterol 92 mg/dL (0-200); Globulin 3.8 g/dL (1.3-4.6); Glomerular Filtration Rate 98.9 mL/min (90-130); Glucose 264 mg/dL (65-115); HDL Cholesterol 35 mg/dL (60-100); LDL Cholesterol Calculated 43 mg/dL (50-129); LDL HDL Ratio 1.23 RATIO (0.00-3.22); Osmolality Calculated 297 mOsm/kg (285-295); Potassium 4.6 mmol/L (3.5-5.1); Sodium 136 mmol/L (136-145); Total Bilirubin 0.3 mg/dL (0.15-1.2); Total Protein 7.7 g/dL (6.6-8.7); Triglycerides 68 mg/dL (0-150)
[2024-03-05 10:59] LABS: Creatinine Urine, Random 28 mg/dL (39-259); Microalbumin Random Urine 2 ug/dL (0-20)
[2024-03-05 11:05] LABS: Microalbum Creatinine Ratio Ur 71 mg/dL (0-20)
[2024-03-05 12:08] LABS: Estmated Average Glucose 220; Hemoglobin A1C 9.3 % (4.0-6.0)
== END 2024-03-05 10:03 | disposition home or self-care (01) ==
LOC: LAB 10:05
PROVIDERS: PCP Nurse Practitioner; Visit Provider Internal Medicine
DX: E11.65 Type 2 diabetes mellitus with hyperglycemia (principal); Z79.4 Long term (current) use of insulin
CPT/HCPCS: 36415; 80053; 80061; 82044; 83036

== ENCOUNTER → 2024-03-07 16:31 | Outpatient (BNVA) | payer BC, SELFPAY | PROVIDERS: PCP Nurse Practitioner; Visit Provider Emergency Medicine | DX: J02.9 Acute pharyngitis, unspecified (principal) | CPT/HCPCS: 87071; 87880 ==

== ENCOUNTER → 2024-08-05 09:41 | Outpatient (BNVA) | payer BC, SELFPAY | PROVIDERS: PCP Nurse Practitioner; Visit Provider Nurse Practitioner | DX: E11.65 Type 2 diabetes mellitus with hyperglycemia (principal); Z79.4 Long term (current) use of insulin; Z12.5 Encounter for screening for malignant neoplasm of prostate | CPT/HCPCS: 80053; 80061; 81000; 82043; 82607; 83036; G0103 ==

== ENCOUNTER → 2025-02-03 16:17 | Outpatient (BNVA) | payer BC, SELFPAY | PROVIDERS: PCP Nurse Practitioner; Visit Provider Nurse Practitioner | DX: E11.65 Type 2 diabetes mellitus with hyperglycemia (principal); Z79.4 Long term (current) use of insulin; E11.9 Type 2 diabetes mellitus without complications; I10 Essential (primary) hypertension; E55.9 Vitamin D deficiency, unspecified | CPT/HCPCS: 80053; 80061; 81003; 82306; 83036; 84443; 85025 ==

== ENCOUNTER 2025-03-03 10:40 | Outpatient (CLI) | payer BC, SELFPAY ==
--- NOTE | 2025-03-03 10:49 | XR_ITS ---
WS: [email or web address] Right foot, 3 views, 03/03/2025 Clinical Data: E11.621 - Type 2 diabetes mellitus with foot ulcer Comparison: Right foot, 08/13/2023 Findings: No fractures or dislocations are seen. No bone destruction or erosion is noted. The joint spaces and soft tissues are normal. The previously noted ulceration adjacent to the head of the right fifth metatarsal is no longer present. XR/XR foot RT min 3V* [id number] Impression: Negative right foot.
--- NOTE | 2025-03-03 10:49 | XR_ITS ---
WS: [email or web address] Left foot, 3 views, 03/02/2025 Clinical Data: E11.621 - Type 2 diabetes mellitus with foot ulcer Comparison: Left foot, 08/13/2023 Findings: No fractures or dislocations are seen. No bone destruction or erosion is noted. There is osteoarthritis of the bases of the left first, second and third metatarsals. There is an old fracture of the left fifth metatarsal.. XR/XR foot LT min 3V* [id number] Impression: 1. 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 2. Old fracture of the left fifth metatarsal.
[2025-03-03 12:11] LABS: Bilirubin Urine Negative (Negative); Blood Urine Negative (Negative); Glucose Urine UA 3+ (Normal); Ketones Urine Negative (Negative); Leukocyte Esterase Urine Negative (Negative); Nitrate Urine Negative (Negative); Protein Urine Negative (Negative); Specific Gravity, Urine 1.013 (1.005-1.030); Urine Appearance Clear (CLEAR); Urine Color Yellow (Yellow); Urobilinogen Urine 0.2 mg/dL (Negative); pH Urine 5.5 (5-7)
[2025-03-03 12:11] LABS: Basophils # 0.1 10^3/uL (0.0-0.1); Basophils % 1.9 %; Eosinophils # 0.4 10^3/uL (0.0-0.8); Eosinophils % 6.1 %; Hematocrit 40.5 % (37-53); Lymphocytes % 16.3 %; Mean Corpuscular HGB Conc 31.9 g/dL (30-55); Mean Corpuscular Hemoglobin 28.3 pg (27-33); Mean Corpuscular Volume 88.8 fl (82-101); Mean Platelet Volume 10.9 fL (7.4-10.4); Monocytes # 0.5 10^3/uL (0.2-0.9); Monocytes % 8.2 %; Neutrophils # 3.95 10^3/uL (1.8-7.7); Neutrophils % 67.2 %; Nucleated Red Blood Cells % 0 %; Platelet Count 215 10^3/cmm (157-399); Red Blood Count 4.56 10^6/uL (3.85-5.65); Red Cell Distribution Width 13.6 % (12.1-15.1); White Blood Count 5.88 10^3/uL (3.29-11.43)
[2025-03-03 12:16] LABS: Add Urine Microscopic? YES; Bacteria Urine None Seen /hpf; Hyaline Casts Urine 0-4 /lpf; RBC Urine 0-2 /hpf (0-2); Squamous Epithelial Cell Urine 0-5 /hpf (0-5); WBC Urine 0-5 /hpf (0-5)
[2025-03-03 12:22] LABS: Estmated Average Glucose 235; Hemoglobin A1C 9.8 % (4.0-6.0)
[2025-03-03 12:34] LABS: Creatinine Urine, Random 21 mg/dL (39-259); Microalbumin Random Urine 1 ug/dL (0-20)
[2025-03-03 12:37] LABS: Microalbum Creatinine Ratio Ur 48 mg/dL (0-20)
[2025-03-03 12:41] LABS: Alanine Aminotransferase 16 U/L (0-41); Albumin Level 4.2 g/dL (3.5-5.2); Alkaline Phosphatase 118 U/L (40-130); Anion Gap 17.4 (5-19); Aspartate Amino Transferase 20 U/L (0-40); Blood Urea Nitrogen 20 mg/dL (8-23); Calcium 9.4 mg/dL (8.5-10.5); Carbon Dioxide 25 mmol/L (22-29); Chloride 98 mmol/L (98-107); Chol HDL Ratio 3.19 mg/dL (1.0-5.00); Cholesterol 99 mg/dL (0-200); Globulin 4.4 g/dL (1.3-4.6); Glomerular Filtration Rate 86.1 mL/min (90-130); Glucose 155 mg/dL (65-115); HDL Cholesterol 31 mg/dL (60-100); LDL Cholesterol Calculated 51 mg/dL (50-129); LDL HDL Ratio 1.65 RATIO (0.00-3.22); Osmolality Calculated 288 mOsm/kg (285-295); Potassium 4.4 mmol/L (3.5-5.1); Prostate Specific Antigen 0.826 ng/mL (0-4); Sodium 136 mmol/L (136-145); Thyroid Stimulating Hormone 4.06 uIU/mL (0.27-4.20); Total Bilirubin 0.4 mg/dL (0.15-1.2); Total Protein 8.6 g/dL (6.6-8.7); Triglycerides 85 mg/dL (0-150)
[2025-03-03 12:42] LABS: Testosterone Total 292.8 ng/dL (193-740)
== END 2025-03-03 10:41 | disposition home or self-care (01) ==
PROVIDERS: PCP Nurse Practitioner; Visit Provider Internal Medicine
DX: E11.9 Type 2 diabetes mellitus without complications (principal); E11.65 Type 2 diabetes mellitus with hyperglycemia; Z79.4 Long term (current) use of insulin; E11.621 Type 2 diabetes mellitus with foot ulcer; L97.509 Non-pressure chronic ulcer of other part of unspecified foot with unspecified severity; M19.072 Primary osteoarthritis, left ankle and foot
CPT/HCPCS: 36415; 73630; 80053; 80061; 81001; 82044; 83036; 84153; 84403; 84443; 85025

== ENCOUNTER 2025-03-04 09:04 | Outpatient (CLI) | payer BC, SELFPAY ==
--- NOTE | 2025-03-04 09:00 | USR_ITS ---
PROCEDURE INFORMATION: Exam: US Duplex Bilateral Lower Extremity Arteries Exam date and time: 03/04/2025 9:19 AM Age: 59 years old Clinical indication: Condition or disease; Other: Non healing ulcers; Additional info: E11.621 - type 2 diabetes mellitus with foot ulcer TECHNIQUE: Imaging protocol: Real-time ultrasound scan of the arteries of the bilateral lower extremities with 2-D joshi scale, color Doppler flow and spectral waveform analysis. Images documented and saved. COMPARISON: MR foot LT wo/w con [id number] 11/06/2022 10:34 AM FINDINGS: Right common femoral artery: No occlusion or significant stenosis. Normal waveform. Right superficial femoral artery: No occlusion or significant stenosis. Normal waveform. Right popliteal artery: No occlusion or significant stenosis. Normal waveform. Right calf/foot arteries: Monophasic waveforms in the posterior tibial artery and dorsalis pedis. Left common femoral artery: No occlusion or significant stenosis. Normal waveform. Left superficial femoral artery: No occlusion or significant stenosis. Normal waveform. Left popliteal artery: No occlusion or significant stenosis. Monophasic waveform. Left calf/foot arteries: No occlusion or significant stenosis in the visualized arteries. Monophasic waveform in the left posterior tibial and dorsalis pedis. Right SYDNI 1.0. Left SYDNI 1.0. US/[place] [id number] IMPRESSION: No stenosis or occlusion.
== END 2025-03-04 09:05 | disposition home or self-care (01) ==
PROVIDERS: PCP Nurse Practitioner; Visit Provider Thoracic Surgery (Cardiothoracic Vascular Surgery)
DX: E11.621 Type 2 diabetes mellitus with foot ulcer (principal); L97.509 Non-pressure chronic ulcer of other part of unspecified foot with unspecified severity
CPT/HCPCS: 93925

== ENCOUNTER 2025-05-19 12:23 | Outpatient (CLI) | payer BC, SELFPAY ==
--- NOTE | 2025-05-19 12:30 | CT_ITS ---
WS: [id number] CT chest wo con [id number] HISTORY: R91.1 - Solitary pulmonary nodule TECHNIQUE: Axial imaging performed through the thorax. Coronal and sagittal reformats are submitted. All CT scans at [facility] use at least one of these dose optimization techniques: automated exposure control; mA and/or kV adjustment per patient size (includes targeted exams where dose is matched to clinical indication); or iterative reconstruction. CONTRAST: None DLP: 634.21 mGy.cm COMPARISON: CT 12/30/2023 Lungs and central airway: Well-aerated lungs. Well-circumscribed 6 mm nodule at the LEFT lung base is stable since 12/30/2023. No new mass or nodule. No pneumonia. Pleura: Normal. No pleural effusion. Heart and pericardium: Moderate cardiomegaly. Mediastinum and arben: No adenopathy identified on this unenhanced exam. Vessels: Moderate atherosclerotic plaque within the aorta. Pulmonary artery is dilated. Prior CABG. Dense extensive coronary artery calcifications. Chest wall and lower neck: Prior CABG. Upper abdomen: Contracted gallbladder with stones. No adrenal mass. Osseous structures: Degenerative thoracic spondylosis. Compression fracture superior endplate of T3. No retropulsion. CT/CT chest wo con [id number] IMPRESSION: 1. Stable well-circumscribed noncalcified 6 mm nodule LEFT lung base since 12/06. Additional [address] follow-up can be obtained to document long-t erm stability. 2. No mediastinal or hilar adenopathy. 3. Pulmonary hypertension. 4. Status post CABG with extensive coronary artery calcifications. 5. Cholelithiasis.
== END 2025-05-19 12:24 | disposition home or self-care (01) ==
LOC: RAD 12:24
PROVIDERS: PCP Nurse Practitioner; Visit Provider Nurse Practitioner
DX: R91.1 Solitary pulmonary nodule (principal); I27.20 Pulmonary hypertension, unspecified; I25.10 Atherosclerotic heart disease of native coronary artery without angina pectoris; Z95.1 Presence of aortocoronary bypass graft; K80.20 Calculus of gallbladder without cholecystitis without obstruction
CPT/HCPCS: 71250

== ENCOUNTER 2025-08-11 15:10 | Outpatient (CLI) | payer BC, SELFPAY ==
--- NOTE | 2025-08-11 15:15 | XR_ITS ---
WS: [email or web address] Right foot, 3 views, 08/11/2025 Clinical Data: Chronic foot wound with current infection Comparison: Right foot, 03/03/2025 Findings: There is bone destruction along with sclerosis of the distal right fifth metatarsal. There is tarsal osteoarthritis. The remainder the foot shows no abnormalities. No fractures or dislocations are seen. There is soft tissue swelling over the distal right fifth metatarsal and dorsum of the foot. XR/XR foot RT min 3V* [id number] Impression: Bone destruction with sclerosis of distal right fifth metacarpal consistent wit h osteomyelitis.
[2025-08-11 16:19] LABS: Creatinine Urine, Random 67 mg/dL (39-259); Microalbum Creatinine Ratio Ur 15 mg/dL (0-20)
[2025-08-11 16:20] LABS: Estmated Average Glucose 249; Hemoglobin A1C 10.3 % (4.0-6.0)
[2025-08-11 16:40] LABS: Alanine Aminotransferase 14 U/L (0-41); Albumin Level 4.0 g/dL (3.5-5.2); Alkaline Phosphatase 116 U/L (40-130); Anion Gap 15.7 (5-19); Aspartate Amino Transferase 17 U/L (0-40); Blood Urea Nitrogen 17 mg/dL (8-23); Calcium 9.6 mg/dL (8.5-10.5); Carbon Dioxide 29 mmol/L (22-29); Chloride 97 mmol/L (98-107); Cholesterol 89 mg/dL (0-200); Globulin 4.6 g/dL (1.3-4.6); Glucose 168 mg/dL (65-115); HDL Cholesterol 24 mg/dL (60-100); Osmolality Calculated 289 mOsm/kg (285-295); Potassium 4.7 mmol/L (3.5-5.1); Sodium 137 mmol/L (136-145); Total Protein 8.6 g/dL (6.6-8.7); Triglycerides 116 mg/dL (0-150); VLDL Cholestrol Calculation 23 mg/dL (0-30)
[2025-08-11 18:17] LABS: Glucose Urine UA 3+ (Normal); Nitrate Urine Negative (Negative)
[2025-08-11 18:19] LABS: Add Urine Microscopic? YES
[2025-08-11 18:24] LABS: Specific Gravity, Urine 1.033 (1.005-1.030); UA Slide Review UA Slide Review Perf
== END 2025-08-11 15:11 | disposition home or self-care (01) ==
LOC: RAD 15:11
PROVIDERS: PCP Nurse Practitioner; Visit Provider Thoracic Surgery (Cardiothoracic Vascular Surgery)
DX: E11.621 Type 2 diabetes mellitus with foot ulcer (principal); L97.509 Non-pressure chronic ulcer of other part of unspecified foot with unspecified severity; I10 Essential (primary) hypertension; E78.2 Mixed hyperlipidemia; E11.65 Type 2 diabetes mellitus with hyperglycemia; Z79.4 Long term (current) use of insulin; M86.171 Other acute osteomyelitis, right ankle and foot
CPT/HCPCS: 36415; 73630; 80053; 80061; 81001; 82044; 83036; 84403; 87070; 87176; 87205